=== PATIENT | female | born 1930 | race Caucasian/White ===

== ENCOUNTER → 2016-09-22 08:22 | Day surgery (SDC) | payer MEDICARE ==
[~2016-09-22 08:22] MED LIST: Acetaminophen TAB* 325 MG PO PRN; Buffered Lidocaine 1% SYR 3ML* 3 ML/SYR SYRINGE INTRADERM ONE; Bupivacaine 0.25% SDV* 30 ML ONE; DiMENhydriNATE IV* 50 MG/ML VIAL IV PUSH PRN; Famotidine IV* 10 MG/ML 2 ML (20 mg) IV ONE; Famotidine IV* 10 MG/ML 2 ML (20 mg) ONE; Ketorolac INJ* 30 MG/ML 1 ML VIAL ONE; Lidocaine 2% PF * 5 ML VIAL ONE; Midazolam* 1 MG/ML 2 ML VIAL (2 MG) ONE; Ondansetron INJ* 2 MG/ML VIAL ONE; Propofol* 10 MG/ML 20 ML BTL IV PUSH ONE; fentaNYL* 50 MCG/ML 2 ML VIAL (100 MCG VIAL) ONE
[2016-09-22 11:18] VITALS: BP 151/74
--- NOTE | 2016-09-23 03:34 | OP ---
DATE OF OPERATION: 09/22/16 - MERGED WITH [facility] DATE OF : 28 SURGEON: Dell Evans MD EMOTIONAL SUPPORT TEACHER: KATYA Kumar ANESTHESIOLOGIST: Dr. Clarke. ANESTHESIA: Local MAC. PRE-OP DIAGNOSIS: Left carpal tunnel syndrome. POST-OP DIAGNOSIS: Left carpal tunnel syndrome. OPERATIVE PROCEDURE: Left open carpal tunnel release. INDICATIONS: Johanna is an 85-year-old female with significant and severe left carpal tunnel syndrome. 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 We had talked about risks and benefits and all the potential procedures for the hand. Ultimately, we decided to see if she would get enough relief performing the left carpal tunnel release to make it tolerable. We had discussed risks and benefits. EBL: 5 mL. COMPLICATIONS: None. FINDINGS: As expected. DESCRIPTION OF PROCEDURE: Johanna was seen in the preoperative area and the correct side and site were marked. We came back to the operating room where she got some anesthesia through the IV and then I infiltrated the operative area with 0.25% Marcaine without epinephrine. The IV was placed on the operative site and the antecubital fossa given her prior mastectomy and lymph node dissection in the contralateral upper extremity. We then prepped and draped the arm in the usual fashion and a formal time out was performed. I then exsanguinated the arm using the Esmarch and left the Esmarch in place as the tourniquet proximally. The distal aspect of the Esmarch was clipped off with the scissors. I then made a standard 2 to 3 cm longitudinal incision for an open carpal tunnel release. Dissection was carried down through the skin, subcutaneous tissue, and palmar fascia. I then used my tenotomy scissors to make subcutaneous tunnel just ulnar to the palmaris longus tendon and superficial to the distal antebrachial fascia. Once this was done, I then used a 15 blade to open up the carpal tunnel and incise the transverse carpal ligament just off the radial aspect of the hook of the hamate. The release was performed from distal to proximal. When I got to the level of the volar wrist flexion crease, I placed a Edith retractor and retracted the skin and subcutaneous tissues superficially. The tenotomy scissors were then used to release the rest of the transverse carpal ligament in distal antebrachial fascia to a level of about 4 to 5 cm proximal to the volar wrist flexion crease. I then checked proximal and distal. There was just a few more fibers of the ligament intact distal and so that was done with the tenotomy scissors. I then irrigated the wound and skin was closed with some 4-0 nylon suture. Wound was dressed with Xeroform, 4x4s, sterile Webril and an Devon wrap. She was then taken to recovery room in stable condition. [id number]/[facility] #: [id number] JULIÁN
== END | disposition home or self-care (01) ==
LOC: OREAST 08:22
PROVIDERS: ATTEND Orthopaedic Surgery Hand Surgery
DX: G56.02 Carpal tunnel syndrome, left upper limb (principal); M18.0 Bilateral primary osteoarthritis of first carpometacarpal joints; I10 Essential (primary) hypertension; J45.909 Unspecified asthma, uncomplicated; Z86.718 Personal history of other venous thrombosis and embolism; Z85.3 Personal history of malignant neoplasm of breast
CPT/HCPCS: J1885; J2250; J2405; J2704; J3010

== ENCOUNTER 2017-02-12 06:55 | Inpatient (IN) | payer MEDICARE ==
[2017-02-12] MEDS ORDERED: Magnesium Hydroxide LIQ* 30 ML UDC PO PRN (13:07)
[2017-02-12] MEDS ORDERED: Enoxaparin(*) 30 MG/0.3 ML SYR SUBCUT SCH (14:00)
[2017-02-12] MEDS: Artificial Tears* 15 ML BTL BOTH EYES SCH ×2 (15:40→21:16)
[2017-02-12] MEDS: Montelukast Sodium TAB* 10 MG PO SCH (16:47)
[2017-02-12] MEDS ORDERED: PTO:Bimatoprost 0.01% OPHTH (NF) 2.5 ML BTL BOTH EYES SCH (18:00)
[2017-02-12] MEDS: Senna TAB PO SCH (21:16)
[2017-02-12] MEDS: Docusate CAP* 100 MG PO SCH (21:16)
[2017-02-12] MEDS: Gabapentin CAP(*) 300 MG PO SCH (21:17)
[2017-02-12] MEDS: PTO:Bimatoprost 0.01% OPHTH (NF) 2.5 ML BTL BOTH EYES SCH (21:18)
--- NOTE | 2017-02-12 23:04 | HP ---
ADMISSION HISTORY AND PHYSICAL: DATE OF ADMISSION: 02/12/17 REASON FOR ADMISSION: Right total knee replacement. HISTORY OF PRESENT ILLNESS: Johanna Burr is an 86-year-old female. She has a medical history significant for asthma. The patient had longstanding right knee pain. She had tried and failed conservative therapy. The patient saw Dr. Brent Woodall. It was decided the best course of action would be for her to have a right total knee replacement. She was admitted to [facility] on 02/09/17 and underwent a total knee replacement that day. Postoperatively, her course was notable for acute blood loss anemia. She did not require a transfusion. She was started on Lovenox. The patient was felt to have physical therapy and occupational therapy needs. She is now being admitted for inpatient rehab so she might return to independent living. PAST MEDICAL HISTORY: Significant for the aforementioned asthma. She has a history of hypertension, depression, and left-sided sciatica. CURRENT MEDICATIONS: Include: 1. Sheridan. 2. Ventolin HFA inhaler. 3. Norvasc. 4. Arimidex for breast cancer. 5. Lumigan eyedrops. 6. Celexa. 7. Lovenox for DVT prophylaxis. 8. Neurontin. 9. Singulair. 10. Prilosec. 11. Timolol eyedrops. ALLERGIES: The patient has allergies listed to ALPHAGAN EYEDROPS, which caused burning in her eyes. SOCIAL HISTORY: She is a nonsmoker, nondrinker. She lives at [place]. She lost her about a year ago. She is a retired nurse, who worked at this hospital for 21 years. REVIEW OF SYSTEMS: The patient reports no current shortness of breath, chest pain or constipation. PHYSICAL EXAMINATION VITAL SIGNS: The patient's temperature is 99.0, blood pressure is 150/59, pulse 77, respirations 20. HEENT: Extraocular movements are intact. Tongue is midline. NECK: Supple. LUNGS: Sound clear to auscultation bilaterally. HEART: Regular. S1 and S2 are audible. ABDOMEN: Soft and nontender. EXTREMITIES: Her right leg has an area of erythema over the right knee. She also has erythema laterally on either side of the knee. There is mild swelling in the right leg. Peripheral pulses are intact. NEUROLOGIC: She is awake, alert, and oriented. Muscle strength 5/5 in both upper and lower extremities. Right leg is about 3/5 secondary to pain. FUNCTIONAL EXAM: She transfers with min assist. ASSESSMENT: Right total knee replacement. PLAN: Integrate her into a comprehensive and therapeutic rehab program with the following goals. 1. Physical Therapy will work with the patient. They are going to work on functional transfer training and ambulation training with a walker. 2. Occupational Therapy will see the patient and work on her activities of daily living including toileting and toilet transfers. 3. Lovenox for DVT prophylaxis. 4. Adequate analgesia. 5. Continue medications for asthma including ProAir inhaler as well as Singulair. 6. Continue her blood pressure medicines. 7. student support services director will be closely involved to make sure that any services and equipment that the patient requires are in place prior to discharge. 8. Advanced directives: The patient is a full code. Her daughter is the healthcare proxy. 9. Home with appropriate services. ESTIMATED LENGTH OF STAY: 7 to 10 days. [id number]/[facility] #: [id number] JULIÁN
[2017-02-13] MEDS: HYDROcodone/ACETAMIN 5-325 MG* 1 TAB PO PRN ×3 (00:40→20:43)
[2017-02-13] MEDS: Omeprazole CAP* 20 MG PO SCH (05:33)
[2017-02-13] MEDS: Artificial Tears* 15 ML BTL BOTH EYES SCH ×4 (05:41→20:47)
[2017-02-13] MEDS: Enoxaparin(*) 30 MG/0.3 ML SYR SUBCUT SCH ×2 (05:44→20:47)
[2017-02-13 06:26] LABS: Hematocrit 27 % (35-47); Hemoglobin 8.8 g/dl (12.0-16.0); Mean Corpuscular HGB Conc 33 g/dl (31-36); Mean Corpuscular Hemoglobin 31 pg (27-31); Mean Corpuscular Volume 96 fL (80-97); Mean Platelet Volume 8 um3 (7.4-10.4); Red Blood Count 2.82 10^6/ul (4.0-5.4); Red Cell Distribution Width 14 % (10.5-15); White Blood Count 8.4 10^3/ul (3.5-10.8)
[2017-02-13 06:45] LABS: Albumin 2.9 g/dL (3.2-5.2); Calcium 8.5 mg/dL (8.6-10.3); EGFR African American 194.2 (>60); Globulin 3.2 g/dL (2-4); Potassium 3.4 mmol/L (3.5-5.0); Total Bilirubin 0.7 mg/dL (0.2-1.0); Total Protein 6.1 g/dL (6.4-8.9)
[2017-02-13] MEDS: PTO:Timolol 0.5% OPTH.SOL* BTL BOTH EYES SCH (08:11)
[2017-02-13] MEDS: Gabapentin CAP(*) 300 MG PO SCH (08:13)
[2017-02-13] MEDS: Docusate CAP* 100 MG PO SCH ×2 (08:13→20:45)
[2017-02-13] MEDS: Ferrous Sulfate TAB* 325 MG PO SCH (08:13)
[2017-02-13] MEDS: celeCOXIB CAP* 200 MG PO SCH (08:14)
[2017-02-13] MEDS: amLODIPine TAB* 5 MG PO SCH (08:14)
[2017-02-13] MEDS: Citalopram TAB* 20 MG PO SCH (08:15)
[2017-02-13] MEDS: Potassium Chlor TAB* 20 MEQ TAB.ER PO SCH ×2 (09:34→20:46)
--- NOTE | 2017-02-13 11:16 | RAD ---
Indication: Right leg edema. Duplex Doppler sonography of the deep venous system of the right lower extremity deep venous system was performed. Bilaterally the common femoral veins appear patent and compressible. Right proximal greater saphenous vein, proximal deep femoral vein, femoral vein, popliteal vein, posterior tibial veins and peroneal veins appear patent and compressible. Limited evaluation of the peroneal veins. IMPRESSION: NO EVIDENCE OF DEEP VENOUS THROMBOSIS IS IDENTIFIED.
--- NOTE | 2017-02-13 12:29 | PMRUTEAM ---
PMRU: Goals Current Status: Nursing: Current Status Skin Deviations [Right Knee] Incision Physical Therapy: Current Status Bed Mobility Assistance supervision Transfer Moblility Assistance CGA Transfer/Bed Mobility Rolling Walker Recommended Devices Ambulation Assistance CGA Ambulation Assistive Devices Rolling Walker Stairs Assistance Contact Guard Assist Stairs Recommended Devices Two Rails Number of Stairs 2 Occupational Therapy: Current Status Upper Body Dressing Supervision Lower Body Dressing Mod Assist Bathing Min Assist Toileting Contact Guard Assist Toilet Transfer Contact Guard Assist Shower Transfer Contact Guard Assist Eating Supervision Rec Therapy: Current Status Summary of Assessment and Pt. was open to conversation and very talkative Clinical Impression throughout. Pt. was bright and engaged. Pt. states she enjoys her life and was able to identify with many activities of interest. Pt. was open to continued visits. Treatment Goals Pt. will engage in leisure activities while on the unit. Treatment Plan Provide RT services and encourage involvement. Social Work: Current Status Discharge Plan return home with home care svs and family support Potential for Family Training pt's family is involved and supportive Anticipated Discharge Home Destination Discharge With home care svs and family support Goals: Physical Therapy: Initial Goals Bed Mobility Assistance Independent Transfer Mobility Assistance Independent Transfer/Bed Mobility Rolling Walker Recommended Devices Ambulation Independent Ambulation Recommended Devices Rolling Walker Ambulation Distance 300 Stairs Assistance Independent Stair Recommended Devices Two Rails Number of Stairs 5 Occupational Therapy: Initial Goals Goals to be Completed in (Days 5-7 ) Upper Body Bathing Routine Independent Lower Body Bathing Routine Modified Independent with Upper Body Dressing Routine Independent Lower Body Dressing Routine Modified Independent with Toilet Hygeine and Clothing Modified Independent with Management Routine Toilet Transfer Routine Modified Independent with Step-In Shower Transfer Modified Independent with Routine Functional Transfers for ADL Modified Independent with Grooming Routine Independent Feeding Routine Independent Social Work: Goals Discharge Plan return home with home care svs and family support Potential for Family Training pt's family is involved and supportive Anticipated Discharge Home Destination Discharge With home care svs and family support Care Plan: Care Plan DVT Prophylaxis- Improve/Maintain Start: 02/12/17 13:43 Freq: DAILY Status: Active Target: Activity Type Activity Date Activity User E-Sign Co-Sign Detail Recorded Client Recorded Date Recorded By Document 02/12/17 20:00 [id number] 02/13/17 02:17 [id number] 02/12/17 20:00 PMRU Outcome: DVT Prophylaxis Outcome/Goals Remains Free of DVT Complies with DVT Prophylaxis /Treatment Demonstrates Knowledge of DVT Prevention/ Treatment TEDS Stockings on Every AM, Off at HS Progression Toward Outcome/Goals Progressing Education-Improve/Maintain Start: 02/12/17 13:43 Freq: DAILY Status: Active Target: Activity Type Activity Date Activity User E-Sign Co-Sign Detail Recorded Client Recorded Date Recorded By Document 02/12/17 20:00 [id number] 02/13/17 02:17 [id number] 02/12/17 20:00 PMRU Outcome: Education Outcome/Goals Demonstrate/ Verbalize Understanding of Written Discharge Instructions Demonstrates Skills Encourage Questions Progression Toward Outcome/Goals Progressing Medication Administration Start: 02/12/17 13:43 Freq: DAILY Status: Active Target: Activity Type Activity Date Activity User E-Sign Co-Sign Detail Recorded Client Recorded Date Recorded By Document 02/12/17 20:00 [id number] [email or web address] 02/13/17 02:17 02/12/17 20:00 PMRU Outcome: Medication Administration Assess Patient Knowledge/Teach Med Yes Education for all Meds Outcome/Goals Patient Independent with Medication Administration at Home Demonstrates Understanding Progression Towards Outcome/Goals Progressing Is Patient Going Home on Lovenox? Yes If Patient is Going Home on Lovenox, Who Pt. self Will Administer Pain/Comfort- Improve/Maintain Start: 02/12/17 13:43 Freq: DAILY Status: Active Target: Activity Type Activity Date Activity User E-Sign Co-Sign Detail Recorded Client Recorded Date Recorded By Document 02/12/17 20:00 [id number] [email or web address] 02/13/17 02:17 [id number] 02/12/17 20:00 PMRU Outcome: Pain/Comfort Outcome/Goals Demonstrates Knowledge and Use of Available Comfort Measures Achieves Acceptable Comfort/Pain Level as Determined by Patient/Condit Maintain Comfort Level Allowing Patient to Fully Participate in Rehab Progression Toward Outcome/Goals Progressing Respiratory - Improve/Maintain Start: 02/12/17 13:43 Freq: DAILY Status: Active Target: Activity Type Activity Date Activity User E-Sign Co-Sign Detail Recorded Client Recorded Date Recorded By Document 02/12/17 20:00 [id number] 02/13/17 02:17 [id number] 02/12/17 20:00 PMRU Outcome: Respiratory Does Patient Have a Trach No Outcome/Goals Maintain/ Improve Activity Tolerance Prevent Pneumonia/ Atelectasis Progression Toward Outcome/Goals Progressing Safety- Improve/Maintain Start: 02/12/17 13:43 Freq: DAILY Status: Active Target: Activity Type Activity Date Activity User E-Sign Co-Sign Detail Recorded Client Recorded Date Recorded By Document 02/12/17 20:00 [id number] [email or web address] 02/13/17 02:17 [id number] 02/12/17 20:00 PMRU Outcome: Safety Outcome/Goals Remain Free of Injury or Harm Cooperates with Safety Measures for Least Restrictive Environment Prevent Falls/ Injury Progression Toward Outcome/Goals Progressing Skin- Improve/Maintain Start: 02/12/17 13:43 Freq: DAILY Status: Active Target: Activity Type Activity Date Activity User E-Sign Co-Sign Detail Recorded Client Recorded Date Recorded By Document 02/12/17 20:00 [id number] 02/13/17 02:17 [id number] 02/12/17 20:00 PMRU Outcome: Skin Skin Risk Level Medium Skin Orders Turn/Position q2hr While in Bed Outcome/Goals Maintain/ Improve Skin Intergrity Maintain/ Improve Wound Status Progression Toward Outcome/Goals Progressing Medicine Note: Length of Stay: [7 days] Anticipated Discharge Destination: Home Tentative Discharge Date: [02/20/17] Discharged to: [home]
[2017-02-13] MEDS: Anastrozole (NF) 1 MG TAB PO SCH (13:23)
[2017-02-13] MEDS: Montelukast Sodium TAB* 10 MG PO SCH (16:59)
[2017-02-13] MEDS: Senna TAB PO SCH (20:45)
[2017-02-13] MEDS: Gabapentin CAP(*) 100 MG PO SCH (20:46)
[2017-02-13] MEDS: PTO:Bimatoprost 0.01% OPHTH (NF) 2.5 ML BTL BOTH EYES SCH (23:11)
[2017-02-14] MEDS: Enoxaparin(*) 30 MG/0.3 ML SYR SUBCUT SCH ×2 (05:47→22:10)
[2017-02-14] MEDS: Omeprazole CAP* 20 MG PO SCH (05:47)
[2017-02-14] MEDS: Docusate CAP* 100 MG PO SCH ×2 (08:20→22:01)
[2017-02-14] MEDS: amLODIPine TAB* 5 MG PO SCH (08:20)
[2017-02-14] MEDS: celeCOXIB CAP* 200 MG PO SCH (08:21)
[2017-02-14] MEDS: Potassium Chlor TAB* 20 MEQ TAB.ER PO SCH ×2 (08:22→22:02)
[2017-02-14] MEDS: Gabapentin CAP(*) 100 MG PO SCH ×2 (08:22→22:02)
[2017-02-14] MEDS: Ferrous Sulfate TAB* 325 MG PO SCH (08:22)
[2017-02-14] MEDS: PTO:Timolol 0.5% OPTH.SOL* BTL BOTH EYES SCH (08:23)
[2017-02-14] MEDS: HYDROcodone/ACETAMIN 5-325 MG* 1 TAB PO PRN (08:23)
[2017-02-14] MEDS: Artificial Tears* 15 ML BTL BOTH EYES SCH ×3 (08:23→19:34)
[2017-02-14] MEDS: Anastrozole (NF) 1 MG TAB PO SCH (08:28)
[2017-02-14] MEDS: CMCS - Anastrozole (NF) 1 MG TAB PO SCH (11:23)
[2017-02-14] MEDS: Citalopram TAB* 20 MG PO SCH ×2 (12:21→22:02)
[2017-02-14] MEDS ORDERED: Iohexol 300* (CONTRAST) 10 ML SDV IV ONE (13:37)
[2017-02-14] MEDS: Magnesium Oxide TAB* 400 MG PO SCH (13:45)
--- NOTE | 2017-02-14 15:46 | RAD ---
INDICATION: Right eye pain and hematoma COMPARISON: None. TECHNIQUE: Noncontrast CT examination of the right hip and femur through the superior portion of the lower leg.. Axial images were acquired and sagittal and coronal reformats were created and independently analyzed. FINDINGS: There are degenerative changes of the right hip including mild marginal osteophyte formation. The right femur appears to be intact. The right knee prosthesis is anatomically aligned. There is a small to moderate joint effusion but no definite intra-articular gas. Beginning at the distal femur and tracking proximally there is a heterogeneous intramuscular collection involving the medial aspect of the quadriceps muscle. Throughout this collection there is intramuscular gas. A more well-circumscribed soft tissue collection is seen along the medial margin of the femur measuring 2 x 2 centimeters in the axial plane and approximately 5.2 cm in length (coronal image 32 and axial image 137). This appears to be contained within and immediately deep to the musculature of the quadriceps and inferior most portion of the hip abductor. There is superficial induration of the subcutaneous tissue. IMPRESSION: Beginning just above the knee prosthesis and tracking proximally within and deep to the musculature of the medial quadriceps muscle there is heterogeneous fluid and soft tissue with a large amount of intramuscular gas. There is a small to moderate joint effusion but no definite intra-articular gas formation (at least visible in the presence of streak artifact from a knee prosthesis). There is a mild to moderate infiltration of the subcutaneous fat. This may be an expected appearance status post total knee arthroplasty, but the possibility of gas forming microbial infection is not delineated by CT imaging alone. Findings were discussed over the telephone with Dr. Alejandre at approximately 1540 hours on February 14, 2017.
[2017-02-14] MEDS: Montelukast Sodium TAB* 10 MG PO SCH (16:44)
[2017-02-14 16:53] LABS: Hematocrit 28 % (35-47); Hemoglobin 9.2 g/dl (12.0-16.0); Mean Corpuscular HGB Conc 32 g/dl (31-36); Mean Corpuscular Hemoglobin 31 pg (27-31); Mean Corpuscular Volume 97 fL (80-97); Mean Platelet Volume 8 um3 (7.4-10.4); Red Blood Count 2.93 10^6/ul (4.0-5.4); Red Cell Distribution Width 14 % (10.5-15); White Blood Count 8.1 10^3/ul (3.5-10.8)
[2017-02-14 17:32] LABS: Erythrocyte Sed Rate 120 mm/Hr (0-40)
--- NOTE | 2017-02-14 17:40 | CONSULT ---
Subjective Date of Service: 02/14/17 Interval History: 86 yo F with hx of HTN, asthma, depression, GERD, breast cancer s/p R MOE with some warmth, erythema/ecchymoses and abnormal CT. Patient underwent R TKA on at [facility]. Was observed there and transferred to [facility] on 02/12/17. She was noted to on admission H&P to erythema over the knee and on both sides. The patient states she did not note these changes until arriving here that day. Reports she had been progressing well at [facility], had no drainage, wound dressing was set to remain in place until follow-up. Says she had temperature of 99 max at [facility]. Progress note from yesterday notes some possible improvement in the discoloration however today seems to be worse. Due to concerns for possible infection patient underwent a CT scan which showed a fluid/soft-tissue collection tracking in the quadriceps with intramuscular gas , also a joint effusion without intra-articular gas. Dr. Davison was consulted who reviewed the films at thought an infectious etiology (specifically necrotizing fasciitis) was unlikely. Hospitalist service was asked to consult for consideration of antibiotics. Family History: Unchanged from Admission - M - of CVA, F - of cancer Social History: Unchanged from Admission - No hx of tobacco abuse, no EtOH or illicit drug use. Former nurse Past Medical History: Unchanged from Admission - HTN, asthma depression, sciatica, GERD, breast cancer s/p mastectomy Review of Systems - Measurements Intake and Output: Intake and Output Last 24 Hours 02/12/17 02/13/17 02/14/17 02/15/17 06:59 06:59 06:59 06:59 Intake Total 440 890 350 Balance 440 890 350 Weight 63.503 kg 63.503 kg Intake: Oral 440 890 350 Other: Estimated Void Medium Small Medium # Bowel Movements 1 1 Estimated Stool Amount Large Medium # Voids 1 1 1 - Review of Systems Constitutional Symptoms: Negative: Fever Dermatology: Positive: Other - Erythema/ecchymoses on RLE HEENT: Positive: Normal Eyes: Positive: Glaucoma, Cataract Thyroid: Positive: Normal Pulmonary: Positive: Normal Cardiology: Positive: Normal Gastroenterology: Positive: Normal Genital - Urinary: Positive: Normal Endocrinology: Positive: Normal Hematologic/Lymphatic: Negative: Easy Brusing Neurology: Positive: Normal Psychiatry: Positive: Normal Objective Active Medications: Acetaminophen (Tylenol Tab*) 650 mg PO Q6H PRN Hydrocodone Bitart/Acetaminophen ([place] 5-325 Tab*) 1 tab PO Q6H PRN Albuterol (Ventolin Hfa Inhaler*) 2 puff INH Q6H PRN Amlodipine Besylate (Norvasc Tab*) 5 mg PO DAILY [facility] Anastrozole (Arimidex (Nf)) 1 mg PO DAILY [facility] Bimatoprost (Lumigan 0.01% Ophth (Nf)) 1 drop BOTH EYES BEDTIME [facility] Celecoxib (Celebrex Cap*) 200 mg PO DAILY [facility] Citalopram Hydrobromide (Celexa Tab*) 20 mg PO BEDTIME [facility] Docusate Sodium (Colace Cap*) 100 mg PO BID [facility] Enoxaparin Sodium (Lovenox(*)) 30 mg SUBCUT 0700,1900 [facility] Ferrous Sulfate (Ferrous Sulfate Tab*) 325 mg PO DAILY [facility] Gabapentin (Neurontin Cap(*)) 100 mg PO BID [facility] Magnesium Hydroxide (Milk Of Magnesia Liq*) 30 ml PO Q6H PRN Magnesium Oxide (Magox 400 Tab*) 400 mg PO DAILY [facility] Montelukast Sodium (Singulair Tab*) 10 mg PO 1700 [facility] Omeprazole (Prilosec Cap*) 20 mg PO 0600 [facility] Polyvinyl Alcohol (Polyvinyl Alcohol 1.4% Opth*) 1 drop BOTH EYES TID [facility] Potassium Chloride (Klor Con Er Tab*) 20 meq PO BID [facility] Senna (Senokot Tab*) 2 tab PO BEDTIME [facility] Timolol Maleate (Timoptic 0.5% Opth*) 1 drop BOTH EYES DAILY [facility] Vital Signs 02/13/17 02/13/17 02/13/17 22:43 22:46 23:44 Temperature 98.2 F Pulse Rate 68 Respiratory 18 18 20 Rate Blood Pressure 121/50 (mmHg) O2 Sat by Pulse 98 Oximetry 02/14/17 02/14/17 10:23 15:52 Temperature 97.4 F Pulse Rate 66 Respiratory 16 16 Rate Blood Pressure 122/50 (mmHg) O2 Sat by Pulse 100 Oximetry Oxygen Devices in Use Now: None Appearance: Elderly F, laying in bed in NAD Eyes: No Scleral Icterus Ears/Nose/Mouth/Throat: Clear Oropharnyx, Mucous Membranes Moist, - - poor dentition Neck: NL Appearance and Movements; NL JVP Respiratory: Symmetrical Chest Expansion and Respiratory Effort, Clear to Auscultation Cardiovascular: NL Sounds; No Murmurs; No JVD, RRR Abdominal: NL Sounds; No Tenderness; No Distention Lymphatic: No Cervical Adenopathy Extremities: - - RLE pitting edema below the knee Skin: - - Ecchymoses on medial and lateral thigh, tracking up towards the buttocks and groin, warmth, mild TTP, no crepitus appreciated, knee dressing in place, no drainage noted, no erythema noted surrounding the incision site or knee itself, effusion present Neurological: Alert and Oriented x 3 Result Diagrams: 02/14/17 16:26 02/13/17 05:56 Assessment/Plan - Billing Post-op pain, ecchymosis, edema with intra-muscular fluid collection/gas after R TKA on 02/09 in an 86 yo F with hx of HTN, asthma, GERD, breast cancer, depression 1) RLE CT changes, edema, ecchymosis - I think the CT findings are likely just post-op changes rather than a deep infection or a necrotizing fasciitis. She has some mild tenderness when the thigh is palpated but I would expect her to have significantly more pain if there was a gas-producing infection. Blood work drawn this afternoon is reassuring. She seems to be having significant ecchymosis tracking up the thigh bilaterally , however the area surrounding the incision and the knee itself are a bit swollen but I don't appreciate much erythema there to indicate a cellulitis. For now I would hold on any antibiotics. If the patient spikes a fever or has a significant clinical change indicating the possibility of a deep infection, then would cover broadly with Vanc/Zosyn/Clinda. Will recheck a CBC in the AM. Recommend an orthopedic evaluation as they are more familiar with post- operative knee changes and what to expect. Thank you for this consult. Will continue to follow.
[2017-02-14] MEDS: Senna TAB PO SCH (22:01)
[2017-02-14] MEDS: PTO:Bimatoprost 0.01% OPHTH (NF) 2.5 ML BTL BOTH EYES SCH (22:08)
[2017-02-15] MEDS: HYDROcodone/ACETAMIN 5-325 MG* 1 TAB PO PRN ×3 (03:37→15:01)
[2017-02-15] MEDS: Omeprazole CAP* 20 MG PO SCH (05:56)
[2017-02-15 09:44] LABS: Hematocrit 32 % (35-47); Mean Corpuscular HGB Conc 32 g/dl (31-36); Mean Corpuscular Hemoglobin 31 pg (27-31); Mean Corpuscular Volume 98 fL (80-97); Mean Platelet Volume 8 um3 (7.4-10.4); Red Blood Count 3.22 10^6/ul (4.0-5.4); Red Cell Distribution Width 14 % (10.5-15); White Blood Count 6.9 10^3/ul (3.5-10.8)
[2017-02-15] MEDS: Gabapentin CAP(*) 100 MG PO SCH ×2 (09:47→20:31)
[2017-02-15] MEDS: Docusate CAP* 100 MG PO SCH ×2 (09:47→20:39)
[2017-02-15 09:49] LABS: BUN/Creatinine Ratio 23.4 (8-20); Calcium 9.3 mg/dL (8.6-10.3); EGFR African American 161.2 (>60); EGFR Non-African American 125.3 (>60); Potassium 3.7 mmol/L (3.5-5.0)
[2017-02-15] MEDS: celeCOXIB CAP* 200 MG PO SCH (09:51)
[2017-02-15] MEDS: Ferrous Sulfate TAB* 325 MG PO SCH (09:51)
[2017-02-15] MEDS: CMCS - Anastrozole (NF) 1 MG TAB PO SCH (09:51)
[2017-02-15] MEDS: amLODIPine TAB* 5 MG PO SCH (09:51)
[2017-02-15] MEDS: Artificial Tears* 15 ML BTL BOTH EYES SCH ×3 (09:51→20:37)
[2017-02-15] MEDS: Enoxaparin(*) 30 MG/0.3 ML SYR SUBCUT SCH ×2 (09:51→20:36)
[2017-02-15] MEDS: Magnesium Oxide TAB* 400 MG PO SCH (09:52)
[2017-02-15] MEDS: Potassium Chlor TAB* 20 MEQ TAB.ER PO SCH (09:52)
[2017-02-15] MEDS: PTO:Timolol 0.5% OPTH.SOL* BTL BOTH EYES SCH (09:53)
--- NOTE | 2017-02-15 13:15 | PN ---
Subjective Date of Service: 02/15/17 Interval History: Patient seen this afternoon. Reports some swelling in her foot. Thinks leg looks and feels a bit better today. Says Dr. Devlin evaluated her this AM and did not think there was any significant problems. Family History: Unchanged from Admission - M - of CVA, F - of cancer Social History: Unchanged from Admission - No hx of tobacco abuse, no EtOH or illicit drug use. Former nurse Past Medical History: Unchanged from Admission - HTN, asthma depression, sciatica, GERD, breast cancer s/p mastectomy Objective Active Medications: Acetaminophen (Tylenol Tab*) 650 mg PO Q6H PRN PRN Reason: FEVER/PAIN Hydrocodone Bitart/Acetaminophen ([place] 5-325 Tab*) 1 tab PO Q6H PRN PRN Reason: PAIN - MODERATE TO SEVERE Last Admin: 02/15/17 09:50 Dose: 1 tab Albuterol (Ventolin Hfa Inhaler*) 2 puff INH Q6H PRN PRN Reason: SOB/WHEEZING Amlodipine Besylate (Norvasc Tab*) 5 mg PO DAILY [facility] Last Admin: 02/15/17 09:51 Dose: 5 mg Anastrozole (Arimidex (Nf)) 1 mg PO DAILY [facility] Last Admin: 02/15/17 09:51 Dose: 1 mg Bimatoprost ([place]umigan 0.01% Ophth (Nf)) 1 drop BOTH EYES BEDTIME [place] PRN Reason: Protocol Last Admin: 02/14/17 22:08 Dose: 1 drop Celecoxib (Celebrex Cap*) 200 mg PO DAILY [facility] Last Admin: 02/15/17 09:51 Dose: 200 mg Citalopram Hydrobromide (Celexa Tab*) 20 mg PO BEDTIME [facility] Last Admin: 02/14/17 22:02 Dose: 20 mg Docusate Sodium (Colace Cap*) 100 mg PO BID [facility] Last Admin: 02/15/17 09:47 Dose: 100 mg Enoxaparin Sodium (Lovenox(*)) 30 mg SUBCUT 799,1999 [facility] Last Admin: 02/15/17 09:51 Dose: 30 mg Ferrous Sulfate (Ferrous Sulfate Tab*) 325 mg PO DAILY [facility] Last Admin: 02/15/17 09:51 Dose: 325 mg Fluticasone Propionate (Flonase Nasal [place] 50mcg*) 2 spray BOTH NARES DAILY [facility] Gabapentin (Neurontin Cap(*)) 100 mg PO BID [facility] Last Admin: 02/15/17 09:47 Dose: 100 mg Magnesium Hydroxide (Milk Of Magnjocelyne Liq*) 30 ml PO Q6H PRN PRN Reason: CONSTIPATION Last Admin: 02/14/17 08:24 Dose: 30 ml Magnesium Oxide (Magox 400 Tab*) 400 mg PO DAILY [facility] Last Admin: 02/15/17 09:52 Dose: 400 mg Mometasone Furoate (Asmanex 220 Mcg Mdi *) 2 puff INH QPM [facility] Montelukast Sodium (Singulair Tab*) 10 mg PO 1700 [facility] Last Admin: 02/14/17 16:44 Dose: 10 mg Omeprazole (Prilosec Cap*) 20 mg PO 0600 [facility] Last Admin: 02/15/17 05:56 Dose: 20 mg Polyvinyl Alcohol (Polyvinyl Alcohol 1.4% Opth*) 1 drop BOTH EYES TID [facility] Last Admin: 02/15/17 09:51 Dose: Not Given Senna (Senokot Tab*) 2 tab PO BEDTIME [facility] Last Admin: 02/14/17 22:01 Dose: Not Given Timolol Maleate (Timoptic 0.5% Opth*) 1 drop BOTH EYES DAILY [facility] Last Admin: 02/15/17 09:53 Dose: Not Given Vital Signs 02/14/17 02/14/17 02/14/17 15:52 22:02 23:55 Temperature 97.4 F Pulse Rate 66 Respiratory 16 18 18 Rate Blood Pressure 122/50 (mmHg) O2 Sat by Pulse 100 Oximetry 02/15/17 02/15/17 02/15/17 03:37 05:34 05:45 Temperature 97.8 F Pulse Rate 66 Respiratory 18 16 18 Rate Blood Pressure 134/54 (mmHg) O2 Sat by Pulse 100 Oximetry 02/15/17 02/15/17 09:47 09:50 Temperature Pulse Rate Respiratory 16 16 Rate Blood Pressure (mmHg) O2 Sat by Pulse Oximetry Oxygen Devices in Use Now: None Appearance: Elderly F, laying in bed in NAD Eyes: No Scleral Icterus Abdominal: NL Sounds; No Tenderness; No Distention Extremities: - - RLE edema Skin: - - Ecchymosis tracking up thigh, slightly improved, less warm, dressing over knee appears c/d/i, no erythema around surgical site Result Diagrams: 02/15/17 09:26 02/15/17 09:26 Assess/Plan/Problems-Billing Post-op pain, ecchymosis, edema with intra-muscular fluid collection/gas after R TKA on 02/09 in an 86 yo F with hx of HTN, asthma, GERD, breast cancer, depression 1) RLE CT changes, edema, ecchymosis - patient has remained stable, leg looks slightly improved today. Labs unremarkable. No clear signs of infection, no need for ABx. Gas likely post-op related. Thank you for this consult. Will sign off at this time. Please contact with any further questions.
[2017-02-15] MEDS: Mometasone 220 MCG MDI INH SCH ×2 (15:02→17:15)
[2017-02-15] MEDS: Fluticasone NASAL SPRAY 50MCG* 16 gm SPRAY BTL BOTH NARES SCH (15:03)
[2017-02-15] MEDS: Montelukast Sodium TAB* 10 MG PO SCH (17:12)
[2017-02-15] MEDS: PTO:Bimatoprost 0.01% OPHTH (NF) 2.5 ML BTL BOTH EYES SCH (20:38)
[2017-02-15] MEDS: Citalopram TAB* 20 MG PO SCH (20:39)
[2017-02-15] MEDS: Senna TAB PO SCH (20:39)
[2017-02-16] MEDS: Omeprazole CAP* 20 MG PO SCH (05:46)
[2017-02-16] MEDS: Magnesium Oxide TAB* 400 MG PO SCH (08:27)
[2017-02-16] MEDS: Docusate CAP* 100 MG PO SCH ×2 (08:27→21:32)
[2017-02-16] MEDS: Ferrous Sulfate TAB* 325 MG PO SCH (08:27)
[2017-02-16] MEDS: amLODIPine TAB* 5 MG PO SCH (08:27)
[2017-02-16] MEDS: celeCOXIB CAP* 200 MG PO SCH (08:27)
[2017-02-16] MEDS: CMCS - Anastrozole (NF) 1 MG TAB PO SCH (08:28)
[2017-02-16] MEDS: Gabapentin CAP(*) 100 MG PO SCH ×2 (08:28→21:32)
[2017-02-16] MEDS: HYDROcodone/ACETAMIN 5-325 MG* 1 TAB PO PRN (08:28)
[2017-02-16] MEDS: Artificial Tears* 15 ML BTL BOTH EYES SCH ×3 (08:30→21:31)
[2017-02-16] MEDS: Fluticasone NASAL SPRAY 50MCG* 16 gm SPRAY BTL BOTH NARES SCH (08:33)
[2017-02-16] MEDS: Enoxaparin(*) 30 MG/0.3 ML SYR SUBCUT SCH ×2 (08:35→19:58)
[2017-02-16] MEDS: PTO:Timolol 0.5% OPTH.SOL* BTL BOTH EYES SCH (08:36)
[2017-02-16] MEDS: Montelukast Sodium TAB* 10 MG PO SCH (17:13)
[2017-02-16] MEDS: Mometasone 220 MCG MDI INH SCH (18:00)
[2017-02-16] MEDS: Acetaminophen TAB* 325 MG PO PRN (20:26)
[2017-02-16] MEDS: Citalopram TAB* 20 MG PO SCH (21:15)
[2017-02-16] MEDS: Senna TAB PO SCH (21:33)
[2017-02-16] MEDS: PTO:Bimatoprost 0.01% OPHTH (NF) 2.5 ML BTL BOTH EYES SCH (21:37)
[2017-02-17] MEDS: Artificial Tears* 15 ML BTL BOTH EYES SCH ×4 (01:51→20:09)
[2017-02-17] MEDS: Acetaminophen TAB* 325 MG PO PRN (02:50)
[2017-02-17] MEDS: Albuterol HFA INHALER* 8 gm MDI INH PRN ×2 (05:19→15:15)
[2017-02-17] MEDS: Omeprazole CAP* 20 MG PO SCH (05:25)
[2017-02-17] MEDS: Enoxaparin(*) 30 MG/0.3 ML SYR SUBCUT SCH ×2 (10:00→20:06)
[2017-02-17] MEDS: amLODIPine TAB* 5 MG PO SCH (10:03)
[2017-02-17] MEDS: Ferrous Sulfate TAB* 325 MG PO SCH (10:03)
[2017-02-17] MEDS: celeCOXIB CAP* 200 MG PO SCH (10:11)
[2017-02-17] MEDS: Magnesium Oxide TAB* 400 MG PO SCH (10:12)
[2017-02-17] MEDS: Gabapentin CAP(*) 100 MG PO SCH ×2 (10:13→20:07)
[2017-02-17] MEDS: Docusate CAP* 100 MG PO SCH ×2 (10:14→20:13)
[2017-02-17] MEDS: CMCS - Anastrozole (NF) 1 MG TAB PO SCH (10:15)
[2017-02-17] MEDS: PTO:Timolol 0.5% OPTH.SOL* BTL BOTH EYES SCH (10:17)
[2017-02-17] MEDS: Fluticasone NASAL SPRAY 50MCG* 16 gm SPRAY BTL BOTH NARES SCH (10:17)
--- NOTE | 2017-02-17 12:37 | PMRUTEAM ---
PMRU: Goals Current Status: Nursing: Current Status Skin Deviations [Right Knee] Incision Skin Deviation Description [ drsg cdi. decreased redness and warmth noted Right Knee] Bladder Current Status independent Bowel Current Status taking bowel meds. last bm 02/16/17 Nutrition Current Status adequate Medication Current Status independent Physical Therapy: Current Status Bed Mobility Assistance Supervision Transfer Moblility Assistance Supervision Transfer/Bed Mobility Rolling Walker Recommended Devices Ambulation Assistance Supervision Ambulation Assistive Devices Rolling Walker Number of Feet Patient 150' Ambulated Ambulation Comment step to antalgic gait Stairs Assistance Supervision Stairs Recommended Devices Two Rails Number of Stairs 5 Occupational Therapy: Current Status Upper Body Dressing Supervision Upper Body Dressing Progress set-up Lower Body Dressing Min Assist Lower Body Dressing Progress min A to use sock aide, set-up with cues for underwear/shorts Bathing Min Assist Bathing Progress FWW Toileting Supervision Toileting Progress FWW Toilet Transfer Supervision Toilet Transfer Progress FWW Shower Transfer Supervision Shower Transfer Progress FWW/grab bar/bench Eating Independent Rec Therapy: Current Status Summary of Assessment and RT assessment complete and pt. is aware of Clinical Impression services. Pt. is talkative in conversation and open to continued visits. Pt. states she has difficulty with many activities d/t poor eye sight . Treatment Goals Pt. will engage in leisure activities while on the unit. Treatment Plan Provide RT services and encourage involvement. Social Work: Current Status Discharge Plan return home with home care svs and family support Potential for Family Training pt's family is involved and supportive Anticipated Discharge Home Destination Discharge With home care svs and family support Nutrition: Current Status Monitoring Pt s/p R total knee replacement. Intake appears adequate: generally 75-100% of most meals. BG 124, 149. No noted hx DM or DM meds. BMs 02/14, 02/16. Regular diet currently appropriate; will follow BG and adjust recs as indicated. Full nutrition assessment to follow per protocol. Goals: Physical Therapy: Initial Goals Bed Mobility Assistance Independent Transfer Mobility Assistance Independent Transfer/Bed Mobility Rolling Walker Recommended Devices Ambulation Independent Ambulation Recommended Devices Rolling Walker Ambulation Distance 300 Stairs Assistance Independent Stair Recommended Devices Two Rails Number of Stairs 5 Occupational Therapy: Initial Goals Goals to be Completed in (Days 5-7 ) Upper Body Bathing Routine Independent Lower Body Bathing Routine Modified Independent with Upper Body Dressing Routine Independent Lower Body Dressing Routine Modified Independent with Toilet Hygeine and Clothing Modified Independent with Management Routine Toilet Transfer Routine Modified Independent with Step-In Shower Transfer Modified Independent with Routine Functional Transfers for ADL Modified Independent with Grooming Routine Independent Feeding Routine Independent Nursing: Goals Bladder Goal independent Bowel Goal indepedent Nutrition Goal 100% of all meals eaten Medication Goal independent Nutrition: Goals Intervention Goals 1. Intake will remain adequate to meet needs for post-op healing without loss of lean body mass 2. BG will normalize 3. Pt will maintain regular bowel pattern without constipation Social Work: Goals Discharge Plan return home with home care svs and family support Potential for Family Training pt's family is involved and supportive Anticipated Discharge Home Destination Discharge With home care svs and family support Care Plan: Care Plan ADL's - Improve/Maintain Start: 02/13/17 13:44 Freq: DAILY Status: Active Target: Activity Type Activity Date Activity User E-Sign Co-Sign Detail Recorded Client Recorded Date Recorded By Document 02/13/17 13:44 [id number] 02/13/17 13:44 [id number] 02/13/17 13:44 PMRU Outcome: ADL's/ADL Transfers Orders/Interventions Occupational Therapy Evaluation & Treatment Communication Tool in Patient Room Device Yes: OTC, AE, shower seat Patient to receive OT 5x/wk for 60-120 Therex min/day Self Care Management Group Therapy UE/LE ADL's with Assist Yes: mod I ADL Transfers with Assist Yes: mod I Toileting: Transfers,Clothing Management Yes: mod I ,Hygeine w/Assist Light Kitchen/Laundry w/Assist Yes Progression Toward Outcome/Goals Progressing DVT Prophylaxis- Improve/Maintain Start: 02/12/17 13:43 Freq: DAILY Status: Active Target: Activity Type Activity Date Activity User E-Sign Co-Sign Detail Recorded Client Recorded Date Recorded By Document 02/17/17 10:30 [id number] 02/17/17 11:00 [id number] 02/17/17 10:30 PMRU Outcome: DVT Prophylaxis Outcome/Goals Remains Free of DVT Complies with DVT Prophylaxis /Treatment Demonstrates Knowledge of DVT Prevention/ Treatment TEDS Stockings on Every AM, Off at HS Progression Toward Outcome/Goals Progressing Discharge Planning - Improve/Maintain Start: 02/12/17 13:43 Freq: DAILY Status: Active Target: Activity Type Activity Date Activity User E-Sign Co-Sign Detail Recorded Client Recorded Date Recorded By Document 02/17/17 00:33 [id number] 02/17/17 00:34 [id number] 02/17/17 00:33 PMRU Outcome: Discharge Planning Identify Patient Needs yes Update Patient Family No Outcome/Goals Demonstrates Understanding of Discharge Plan Progression Toward Outcome/Goals Progressing Education-Improve/Maintain Start: 02/12/17 13:43 Freq: DAILY Status: Active Target: Activity Type Activity Date Activity User E-Sign Co-Sign Detail Recorded Client Recorded Date Recorded By Document 02/17/17 10:30 [id number] 02/17/17 11:00 [id number] 02/17/17 10:30 PMRU Outcome: Education Outcome/Goals Demonstrate/ Verbalize Understanding of Written Discharge Instructions Demonstrates Skills Encourage Questions Progression Toward Outcome/Goals Progressing Medication Administration Start: 02/12/17 13:43 Freq: DAILY Status: Active Target: Activity Type Activity Date Activity User E-Sign Co-Sign Detail Recorded Client Recorded Date Recorded By Document 02/17/17 10:30 [id number] 02/17/17 11:00 [id number] 02/17/17 10:30 PMRU Outcome: Medication Administration Assess Patient Knowledge/Teach Med Yes Education for all Meds Outcome/Goals Patient Independent with Medication Administration at Home Demonstrates Understanding Progression Towards Outcome/Goals Progressing Is Patient Going Home on Lovenox? No If Patient is Going Home on Lovenox, Who unknown at this Will Administer time Mobility- Improve/Maintain Start: 02/13/17 17:16 Freq: DAILY Status: Active Target: Activity Type Activity Date Activity User E-Sign Co-Sign Detail Recorded Client Recorded Date Recorded By Document 02/16/17 12:59 [id number] [email or web address] 02/16/17 12:59 [id number] 02/16/17 12:59 PMRU Outcome: Mobility Physical Therapy Evaluation and Yes Treatment Activity OOB with Assistance Yes WBAT Yes Device Yes Assistance Yes Patient to be seen 5x/wk for 60-120 min/ Therex day for: Mobility Training Gait Training W/C Mobility Balance Outcome/Goals Maintain/ Achieve Baseline Mobility Status Improve Mobility Status Demonstrates Proper Use of Assistive Devices Free from Complications of Immobility Progression Toward Outcome/Goals Progressing Bed Mobility Yes: independent Transfers Yes: independent with rolling walker Gait x ft Yes: independent with rolling walekr 150' Up/Down Stairs Yes: independent up/ down 5 stairs with Bilateral rails. Pain/Comfort- Improve/Maintain Start: 02/12/17 13:43 Freq: DAILY Status: Active Target: Activity Type Activity Date Activity User E-Sign Co-Sign Detail Recorded Client Recorded Date Recorded By Document 02/17/17 10:30 [id number] 02/17/17 11:00 [id number] 02/17/17 10:30 PMRU Outcome: Pain/Comfort Outcome/Goals Demonstrates Knowledge and Use of Available Comfort Measures Achieves Acceptable Comfort/Pain Level as Determined by Patient/Condit Maintain Comfort Level Allowing Patient to Fully Participate in Rehab Progression Toward Outcome/Goals Progressing Respiratory - Improve/Maintain Start: 02/12/17 13:43 Freq: DAILY Status: Active Target: Activity Type Activity Date Activity User E-Sign Co-Sign Detail Recorded Client Recorded Date Recorded By Document 02/17/17 10:30 [id number] 02/17/17 11:00 [id number] 02/17/17 10:30 PMRU Outcome: Respiratory Does Patient Have a Trach No Outcome/Goals Maintain/ Improve Baseline Respiratory Status Maintain/ Improve Activity Tolerance Prevent Pneumonia/ Atelectasis Progression Toward Outcome/Goals Progressing Safety- Improve/Maintain Start: 02/12/17 13:43 Freq: DAILY Status: Active Target: Activity Type Activity Date Activity User E-Sign Co-Sign Detail Recorded Client Recorded Date Recorded By Document 02/17/17 10:30 [id number] 02/17/17 11:00 [id number] 02/17/17 10:30 PMRU Outcome: Safety Outcome/Goals Remain Free of Injury or Harm Cooperates with Safety Measures for Least Restrictive Environment Prevent Falls/ Injury Progression Toward Outcome/Goals Progressing Skin- Improve/Maintain Start: 02/12/17 13:43 Freq: DAILY Status: Active Target: Activity Type Activity Date Activity User E-Sign Co-Sign Detail Recorded Client Recorded Date Recorded By Document 02/17/17 10:30 [id number] 02/17/17 11:00 [id number] 02/17/17 10:30 PMRU Outcome: Skin Skin Risk Level Medium Skin Orders Heels Off Bed Turn/Position q2hr While in Bed Outcome/Goals Maintain/ Improve Skin Intergrity Surgical Incisions Healing Progression Toward Outcome/Goals Progressing Medicine Note: Length of Stay: [3 days] Anticipated Discharge Destination: Home Tentative Discharge Date: [02/20/17] Discharged to: [home]
[2017-02-17] MEDS: Montelukast Sodium TAB* 10 MG PO SCH (17:40)
[2017-02-17] MEDS: Mometasone 220 MCG MDI INH SCH (19:08)
[2017-02-17] MEDS: Citalopram TAB* 20 MG PO SCH (20:07)
[2017-02-17] MEDS: PTO:Bimatoprost 0.01% OPHTH (NF) 2.5 ML BTL BOTH EYES SCH (20:09)
[2017-02-17] MEDS: Senna TAB PO SCH (20:13)
[2017-02-18] MEDS: HYDROcodone/ACETAMIN 5-325 MG* 1 TAB PO PRN ×3 (00:07→19:26)
[2017-02-18] MEDS: Omeprazole CAP* 20 MG PO SCH (05:05)
[2017-02-18] MEDS: Acetaminophen TAB* 325 MG PO PRN ×2 (05:05→23:25)
[2017-02-18] MEDS: Fluticasone NASAL SPRAY 50MCG* 16 gm SPRAY BTL BOTH NARES SCH (09:22)
[2017-02-18] MEDS: Artificial Tears* 15 ML BTL BOTH EYES SCH ×3 (09:23→20:09)
[2017-02-18] MEDS: PTO:Timolol 0.5% OPTH.SOL* BTL BOTH EYES SCH (09:23)
[2017-02-18] MEDS: celeCOXIB CAP* 200 MG PO SCH (09:23)
[2017-02-18] MEDS: amLODIPine TAB* 5 MG PO SCH (09:24)
[2017-02-18] MEDS: CMCS - Anastrozole (NF) 1 MG TAB PO SCH (09:25)
[2017-02-18] MEDS: Ferrous Sulfate TAB* 325 MG PO SCH (09:25)
[2017-02-18] MEDS: Gabapentin CAP(*) 100 MG PO SCH ×2 (09:25→20:08)
[2017-02-18] MEDS: Magnesium Oxide TAB* 400 MG PO SCH (09:26)
[2017-02-18] MEDS: Docusate CAP* 100 MG PO SCH ×2 (09:26→20:14)
[2017-02-18] MEDS: Enoxaparin(*) 30 MG/0.3 ML SYR SUBCUT SCH ×2 (09:27→19:26)
[2017-02-18] MEDS: Montelukast Sodium TAB* 10 MG PO SCH (17:27)
[2017-02-18] MEDS: Hemorrhoidal OINT PR PRN (19:17)
[2017-02-18] MEDS: Mometasone 220 MCG MDI INH SCH (19:26)
[2017-02-18] MEDS: Citalopram TAB* 20 MG PO SCH (20:09)
[2017-02-18] MEDS: PTO:Bimatoprost 0.01% OPHTH (NF) 2.5 ML BTL BOTH EYES SCH (20:12)
[2017-02-18] MEDS: Senna TAB PO SCH (20:14)
[2017-02-19] MEDS: HYDROcodone/ACETAMIN 5-325 MG* 1 TAB PO PRN ×2 (03:22→10:20)
[2017-02-19] MEDS: Acetaminophen TAB* 325 MG PO PRN ×2 (06:18→19:37)
[2017-02-19] MEDS: Omeprazole CAP* 20 MG PO SCH (06:18)
[2017-02-19] MEDS: Artificial Tears* 15 ML BTL BOTH EYES SCH ×3 (10:03→21:51)
[2017-02-19] MEDS: Ferrous Sulfate TAB* 325 MG PO SCH (10:19)
[2017-02-19] MEDS: celeCOXIB CAP* 200 MG PO SCH (10:19)
[2017-02-19] MEDS: CMCS - Anastrozole (NF) 1 MG TAB PO SCH (10:19)
[2017-02-19] MEDS: PTO:Timolol 0.5% OPTH.SOL* BTL BOTH EYES SCH (10:19)
[2017-02-19] MEDS: amLODIPine TAB* 5 MG PO SCH (10:19)
[2017-02-19] MEDS: Gabapentin CAP(*) 100 MG PO SCH ×2 (10:20→21:46)
[2017-02-19] MEDS: Docusate CAP* 100 MG PO SCH (10:20)
[2017-02-19] MEDS: Magnesium Oxide TAB* 400 MG PO SCH (10:20)
[2017-02-19] MEDS: Fluticasone NASAL SPRAY 50MCG* 16 gm SPRAY BTL BOTH NARES SCH (10:21)
[2017-02-19] MEDS: Enoxaparin(*) 30 MG/0.3 ML SYR SUBCUT SCH ×2 (10:22→21:47)
[2017-02-19] MEDS: Montelukast Sodium TAB* 10 MG PO SCH (17:19)
[2017-02-19] MEDS: Hemorrhoidal OINT PR PRN (17:20)
[2017-02-19] MEDS: Mometasone 220 MCG MDI INH SCH (17:20)
[2017-02-19] MEDS: TIGER BALM TOPICAL PRN (17:22)
--- NOTE | 2017-02-19 20:14 | RAD ---
INDICATION: Headaches after fall. Intracranial injury. COMPARISON: CT brain October 15, 2013 TECHNIQUE: Noncontrast axial source images were acquired from the skull base to the vertex. FINDINGS: Ventricles/sulci: There is age-related cortical atrophy with compensatory dilatation of the CSF spaces. Brain parenchyma: There is mild the decreased attenuation in the periventricular and subcortical white matter consistent with mild chronic microvascular ischemia. Intracranial hemorrhage:None. Extra-axial spaces: There are no abnormal extra axial fluid collections or evidence of extra-axial mass. Calvarium: There is no calvarial fracture or other calvarial abnormality. Scalp: There is no evidence of scalp or extracalvarial soft tissue abnormality. Paranasal sinuses/mastoid: The paranasal sinuses and mastoid air cells are clear. Other: None. IMPRESSION: No acute intracranial findings.
--- NOTE | 2017-02-19 20:35 | RAD ---
INDICATION: Sacral injury COMPARISON: CT October 15, 2013 TECHNIQUE: AP and lateral views the sacrum were obtained. FINDINGS: There is angulation of the sacrum which is likely developmental and is unchanged in appearance from an earlier CT. No acute fracture is seen. The SI joints and symphysis are intact. There is degenerative change lumbar spine. IMPRESSION: NO ACUTE SACRAL FRACTURE. IF THERE IS CONCERN OF A PELVIC INSUFFICIENCY FRACTURE, SUGGEST A FOLLOW-UP BONE SCAN.
--- NOTE | 2017-02-19 20:35 | RAD ---
INDICATION: Fall. Pelvic pain. COMPARISON: None TECHNIQUE: A single AP view of the pelvis is submitted. FINDINGS: There are no acute osseous findings. The hips articulate normally. The SI joints and symphysis are intact. IMPRESSION: NO ACUTE BONY FINDINGS.
[2017-02-19] MEDS ORDERED: Gabapentin CAP(*) 100 MG PO SCH (21:00)
--- NOTE | 2017-02-19 21:20 | RAD ---
INDICATION: Left wrist injury COMPARISON: Left hand August 15, 2016 TECHNIQUE: AP, lateral, and oblique views were obtained. FINDINGS: There are no acute bony findings. There is underlying osteopenia. There is moderate to advanced osteocytic change about the first carpometacarpal articulation. There is minor radiocarpal osteoarthritis. There is mild soft tissue swelling of the dorsum of the wrist. IMPRESSION: NO ACUTE BONY FINDINGS. FIRST CARPOMETACARPAL OSTEOARTHRITIS. MILD RADIOCARPAL OSTEOARTHRITIS.
[2017-02-19] MEDS: Citalopram TAB* 20 MG PO SCH (21:45)
[2017-02-19] MEDS: PTO:Bimatoprost 0.01% OPHTH (NF) 2.5 ML BTL BOTH EYES SCH (22:08)
[2017-02-20] MEDS: Acetaminophen TAB* 325 MG PO PRN ×2 (01:32→22:59)
[2017-02-20] MEDS: Omeprazole CAP* 20 MG PO SCH (06:04)
[2017-02-20 06:52] LABS: Hematocrit 29 % (35-47); Hemoglobin 9.4 g/dl (12.0-16.0); Mean Corpuscular HGB Conc 33 g/dl (31-36); Mean Corpuscular Hemoglobin 31 pg (27-31); Mean Corpuscular Volume 96 fL (80-97); Mean Platelet Volume 7 um3 (7.4-10.4); Red Cell Distribution Width 15 % (10.5-15); White Blood Count 6.9 10^3/ul (3.5-10.8)
[2017-02-20 07:04] LABS: Albumin 3.1 g/dL (3.2-5.2); BUN/Creatinine Ratio 32.6 (8-20); Calcium 8.9 mg/dL (8.6-10.3); EGFR African American 178.6 (>60); EGFR Non-African American 138.9 (>60); Globulin 3.2 g/dL (2-4); Potassium 3.8 mmol/L (3.5-5.0); Total Bilirubin 0.4 mg/dL (0.2-1.0); Total Protein 6.3 g/dL (6.4-8.9)
--- NOTE | 2017-02-20 07:35 | RAD ---
INDICATION: Trauma, neck pain. COMPARISON: Comparison is made with a prior CT of the chest from October 15, 2013, prior cervical spine x-ray series from April 25, 2015 and prior MRI of the cervical spine from April 10, 2016. TECHNIQUE: Contiguous axial sections were obtained from the skull base through the T1 vertebra. Images were reconstructed in the sagittal and coronal planes. FINDINGS: There is straightening of the cervical spine with loss of the normal cervical lordosis. No prevertebral soft tissue swelling or fracture is seen. At the C1-C2 level there is spinal canal narrowing and spinal cord flattening. This could be further defined with an MRI of the cervical spine as clinically needed. At the C2-C3 level there is mild posterior uncinate process spurring. There appears to be mild spinal canal narrowing and mild to moderate bilateral neural foraminal narrowing. At the C3-C4 level there is mild posterior uncinate process spurring. There is mild spinal canal narrowing. There are severe hypertrophic changes within the facet joint on the left side. There is mild neural foraminal narrowing on the right side and moderate to severe neural foraminal narrowing on the left side. At the C4-C5 level there is minimal posterior uncinate process spurring. No significant spinal canal narrowing is present. There is mild neural foraminal narrowing on the right side and mild to moderate neural foraminal narrowing on the left side. The C5-C6 level there is mild posterior uncinate process spurring. There is mild to moderate spinal canal narrowing. There is mild neural foraminal narrowing on the right side and moderate neural foraminal narrowing on the left side. At the C6-C7 level there is mild posterior uncinate process spurring. There is mild to moderate bilateral neural foraminal narrowing. Ossification is noted within the supraspinous ligament in the lower cervical spine. There is increased density at both lung apices which are unchanged from the prior CT of the chest study most consistent with bilateral apical pleural-parenchymal scarring. IMPRESSION: 1. STRAIGHTENING OF THE CERVICAL SPINE, NO EVIDENCE FOR FRACTURE OR SUBLUXATION. 2. MODERATE DIFFUSE CERVICAL SPONDYLOSIS WITH MORE FOCAL MODERATE TO SEVERE CHANGES AT THE C1-C2 LEVEL. THESE CHANGES COULD BE BETTER DEFINED WITH AN MRI OF THE CERVICAL SPINE CLINICALLY NEEDED.
[2017-02-20] MEDS: Magnesium Oxide TAB* 400 MG PO SCH (07:41)
[2017-02-20] MEDS: Ferrous Sulfate TAB* 325 MG PO SCH (07:41)
[2017-02-20] MEDS: Artificial Tears* 15 ML BTL BOTH EYES SCH ×3 (07:42→21:51)
[2017-02-20] MEDS: celeCOXIB CAP* 200 MG PO SCH (07:42)
[2017-02-20] MEDS: amLODIPine TAB* 5 MG PO SCH (07:42)
[2017-02-20] MEDS: CMCS - Anastrozole (NF) 1 MG TAB PO SCH (07:42)
[2017-02-20] MEDS: Fluticasone NASAL SPRAY 50MCG* 16 gm SPRAY BTL BOTH NARES SCH (07:43)
[2017-02-20] MEDS: Gabapentin CAP(*) 100 MG PO SCH ×2 (07:43→21:43)
[2017-02-20] MEDS: PTO:Timolol 0.5% OPTH.SOL* BTL BOTH EYES SCH (07:46)
[2017-02-20] MEDS: Enoxaparin(*) 30 MG/0.3 ML SYR SUBCUT SCH ×2 (10:25→20:16)
[2017-02-20] MEDS: HYDROcodone/ACETAMIN 5-325 MG* 1 TAB PO PRN (10:27)
[2017-02-20] MEDS: Hemorrhoidal OINT PR PRN ×2 (16:40→20:15)
[2017-02-20] MEDS: Montelukast Sodium TAB* 10 MG PO SCH (16:41)
[2017-02-20] MEDS: Mometasone 220 MCG MDI INH SCH (18:38)
[2017-02-20] MEDS: Citalopram TAB* 20 MG PO SCH (21:44)
[2017-02-20] MEDS: TIGER BALM TOPICAL PRN (21:47)
[2017-02-20] MEDS: PTO:Bimatoprost 0.01% OPHTH (NF) 2.5 ML BTL BOTH EYES SCH (21:51)
[2017-02-21] MEDS: Albuterol HFA INHALER* 8 gm MDI INH PRN (03:21)
[2017-02-21] MEDS: Omeprazole CAP* 20 MG PO SCH (06:39)
[2017-02-21] MEDS: Gabapentin CAP(*) 100 MG PO SCH ×2 (08:26→21:26)
[2017-02-21] MEDS: CMCS - Anastrozole (NF) 1 MG TAB PO SCH (08:26)
[2017-02-21] MEDS: Ferrous Sulfate TAB* 325 MG PO SCH (08:27)
[2017-02-21] MEDS: amLODIPine TAB* 5 MG PO SCH (08:27)
[2017-02-21] MEDS: Enoxaparin(*) 30 MG/0.3 ML SYR SUBCUT SCH ×2 (08:27→20:13)
[2017-02-21] MEDS: Magnesium Oxide TAB* 400 MG PO SCH (08:27)
[2017-02-21] MEDS: celeCOXIB CAP* 200 MG PO SCH (08:27)
[2017-02-21] MEDS: Fluticasone NASAL SPRAY 50MCG* 16 gm SPRAY BTL BOTH NARES SCH (08:28)
[2017-02-21] MEDS: Artificial Tears* 15 ML BTL BOTH EYES SCH ×3 (08:28→21:27)
[2017-02-21] MEDS: PTO:Timolol 0.5% OPTH.SOL* BTL BOTH EYES SCH (09:42)
[2017-02-21] MEDS: TIGER BALM TOPICAL PRN ×2 (11:15→22:25)
[2017-02-21] MEDS: Mometasone 220 MCG MDI INH SCH (17:08)
[2017-02-21] MEDS: Montelukast Sodium TAB* 10 MG PO SCH (17:12)
[2017-02-21] MEDS: Hemorrhoidal OINT PR PRN (18:15)
[2017-02-21] MEDS: Citalopram TAB* 20 MG PO SCH (21:26)
[2017-02-21] MEDS: PTO:Bimatoprost 0.01% OPHTH (NF) 2.5 ML BTL BOTH EYES SCH (21:27)
[2017-02-21] MEDS: Acetaminophen TAB* 325 MG PO PRN (23:45)
[2017-02-22] MEDS: HYDROcodone/ACETAMIN 5-325 MG* 1 TAB PO PRN (06:49)
[2017-02-22] MEDS: Omeprazole CAP* 20 MG PO SCH (06:49)
[2017-02-22] MEDS: Hemorrhoidal OINT PR PRN ×2 (06:55→23:50)
[2017-02-22] MEDS: Gabapentin CAP(*) 100 MG PO SCH ×2 (09:13→20:58)
[2017-02-22] MEDS: celeCOXIB CAP* 200 MG PO SCH (09:13)
[2017-02-22] MEDS: amLODIPine TAB* 5 MG PO SCH (09:14)
[2017-02-22] MEDS: Ferrous Sulfate TAB* 325 MG PO SCH (09:14)
[2017-02-22] MEDS: Magnesium Oxide TAB* 400 MG PO SCH (09:15)
[2017-02-22] MEDS: Artificial Tears* 15 ML BTL BOTH EYES SCH ×3 (09:15→20:58)
[2017-02-22] MEDS: Fluticasone NASAL SPRAY 50MCG* 16 gm SPRAY BTL BOTH NARES SCH (09:15)
[2017-02-22] MEDS: CMCS - Anastrozole (NF) 1 MG TAB PO SCH (09:16)
[2017-02-22] MEDS: Enoxaparin(*) 30 MG/0.3 ML SYR SUBCUT SCH ×2 (09:16→20:57)
[2017-02-22] MEDS: PTO:Timolol 0.5% OPTH.SOL* BTL BOTH EYES SCH (10:45)
[2017-02-22] MEDS: Montelukast Sodium TAB* 10 MG PO SCH (17:09)
[2017-02-22] MEDS: Acetaminophen TAB* 325 MG PO PRN (18:22)
[2017-02-22] MEDS: Mometasone 220 MCG MDI INH SCH (18:23)
[2017-02-22] MEDS: Citalopram TAB* 20 MG PO SCH (20:58)
[2017-02-22] MEDS: PTO:Bimatoprost 0.01% OPHTH (NF) 2.5 ML BTL BOTH EYES SCH (20:59)
[2017-02-22] MEDS: TIGER BALM TOPICAL PRN (20:59)
[2017-02-23] MEDS: Hemorrhoidal OINT PR PRN ×2 (03:15→09:15)
[2017-02-23] MEDS: Acetaminophen TAB* 325 MG PO PRN ×2 (03:19→09:08)
[2017-02-23] MEDS: Omeprazole CAP* 20 MG PO SCH (05:07)
[2017-02-23 06:52] VITALS: BP 140/58
[2017-02-23] MEDS: Fluticasone NASAL SPRAY 50MCG* 16 gm SPRAY BTL BOTH NARES SCH (09:04)
[2017-02-23] MEDS: Artificial Tears* 15 ML BTL BOTH EYES SCH (09:04)
[2017-02-23] MEDS: celeCOXIB CAP* 200 MG PO SCH (09:05)
[2017-02-23] MEDS: Magnesium Oxide TAB* 400 MG PO SCH (09:08)
[2017-02-23] MEDS: amLODIPine TAB* 5 MG PO SCH (09:08)
[2017-02-23] MEDS: CMCS - Anastrozole (NF) 1 MG TAB PO SCH (09:08)
[2017-02-23] MEDS: Ferrous Sulfate TAB* 325 MG PO SCH (09:08)
[2017-02-23] MEDS: Gabapentin CAP(*) 100 MG PO SCH (09:08)
[2017-02-23] MEDS: Enoxaparin(*) 30 MG/0.3 ML SYR SUBCUT SCH (09:10)
[2017-02-23] MEDS: PTO:Timolol 0.5% OPTH.SOL* BTL BOTH EYES SCH (09:14)
[2017-02-23 12:08] LABS: Urine Bacteria Absent (Absent); Urine Bilirubin Negative (Negative); Urine Glucose Negative (Negative); Urine Nitrite Negative (Negative)
--- NOTE | 2017-02-25 04:40 | DS ---
CC: Dr. Alexi Rinaldi. * DISCHARGE SUMMARY: DATE OF ADMISSION: 02/12/17 DATE OF DISCHARGE: 02/23/17 DISCHARGE DIAGNOSES: 1. 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 2. Asthma. 3. Hypertension. 4. Depression. 5. Sciatica. HISTORY OF PRESENT ILLNESS AND HOSPITAL COURSE: For complete history of the events leading up to her rehab stay, please see the history and physical dictated by me on 02/12/17. While on the rehab unit, the patient had some erythema and warmth around the right knee. It was felt likely to be a hematoma. The patient had a Doppler of the right lower extremity that was negative for a DVT. A CAT scan of the right leg was done. Radiologist felt that there was intramuscular gas there possibly concerning for a gas-forming microbial infection. Orthopedics was called and asked to consult. Dr. Devlin saw the patient. Orthopedics felt that the patient most likely had some bruising and that it was stable. There were no signs of any necrotizing fasciitis. The patient seemed to be doing well. She was maintained on Lovenox for DVT prophylaxis. The patient was walking to the bathroom with a nurse on the evening of 02/19/17, when she fell backwards hitting the back of her head on her room door. The patient had a CAT scan of her head which was unrevealing. She had an x-ray of her left wrist which was again unrevealing. She had an x-ray of her pelvis that did not show any acute findings and an x- ray of her sacrum and coccyx which again showed no acute findings. The patient was monitored over the weekend. She was stable. She was felt ready to be discharged home on 02/23/17. The patient was seen by both physical and occupational therapy while on the rehab unit. She did well with both disciplines. With physical therapy at the time of admission, the patient required contact guard for transfer, she could ambulate with contact guard. With occupational therapy, she was min-assist for toileting and lower body dressing, otherwise contact guard. By the time of discharge, the patient was independent transfers, independent ambulating, independent going up and down 2 steps, independent with activities of daily living. She was discharged home on 02/23/17. DISCHARGE DIET: Regular. DISCHARGE MEDICATIONS: Included: 1. [place] balm topically 4 times a day as needed. 2. [place] 5/325 mg 1 tablet every 6 hours as needed. 3. Neurontin 200 mg twice a day. 4. Singulair 10 mg in the evening. 5. Timolol eye drops 1 drop both eyes in the morning. 6. Flonase 1 spray both nares in the morning. 7. MiraLAX 17 g every other day as needed. 8. Albuterol HFA inhaler 2 puffs every 4hours as needed. 9. Celebrex 200 mg daily. 10. [place] eye drops 0.01% 1 drop to both eyes at bedtime. 11. Preparation H as needed. 12. Flovent 110 mcg 2 puffs daily. 13. Celexa 20 mg daily. 14. Omeprazole 20 mg daily. 15. Arimidex 1 mg daily. 16. Norvasc 5 mg daily . 17. Aspirin 81 mg daily. SERVICES AFTER DISCHARGE: Through visiting nurse service in [place]. She will have home nursing, home physical therapy and home health aide, follow up with Dr. Hayes Rinaldi in the next 3 weeks as well as with her orthopedic surgeon, Dr. Brent Woodall, in the following week. [id number]/[facility] #: [id number] JULIÁN
== END 2017-02-23 11:45 | disposition home health service (06) | DRG 561 ==
LOC: PMRU 12:47 → MERGE 12:47
PROVIDERS: ADMIT Physical Medicine & Rehabilitation; ATTEND Physical Medicine & Rehabilitation
PROC: F07Z5ZZ Bed Mobility Treatment (ICD-10-PCS; principal; 2017-02-12)
PROC: F07Z9ZZ Gait Training/Functional Ambulation Treatment (ICD-10-PCS; 2017-02-12)
PROC: F07Z8ZZ Transfer Training Treatment (ICD-10-PCS; 2017-02-12)
PROC: F08Z0ZZ Bathing/Showering Techniques Treatment (ICD-10-PCS; 2017-02-12)
PROC: F08Z1ZZ Dressing Techniques Treatment (ICD-10-PCS; 2017-02-12)
PROC: F08Z3ZZ Feeding/Eating Treatment (ICD-10-PCS; 2017-02-12)
DX: Z47.1 Aftercare following joint replacement surgery (principal); I10 Essential (primary) hypertension; Z96.651 Presence of right artificial knee joint; J45.909 Unspecified asthma, uncomplicated; F32.9 Major depressive disorder, single episode, unspecified; M54.32 Sciatica, left side; W18.30XA Fall on same level, unspecified, initial encounter; Y92.230 Patient room in hospital as the place of occurrence of the external cause; K21.9 Gastro-esophageal reflux disease without esophagitis; M79.651 Pain in right thigh; R58 Hemorrhage, not elsewhere classified; Y93.9 Activity, unspecified; Z85.3 Personal history of malignant neoplasm of breast; Z88.8 Allergy status to other drugs, medicaments and biological substances; Z79.899 Other long term (current) drug therapy; Z82.3 Family history of stroke; Z80.9 Family history of malignant neoplasm, unspecified
CPT/HCPCS: 36415; 70450; 72125; 72170; 72220; 80048; 80053; 81003; 81015; 82465; 83605; 84145; 85025; 85652; 86141; 87077; 87086; 87186; 94640; A9270-GY; J1650; Q9967

== ENCOUNTER 2019-07-12 11:39 | Emergency (ER) | payer MEDICARE ==
--- OUTSIDE RECORDS SUMMARY | 2019-07-12 11:46 | XMS REPORT | Continuity of Care Document ---
:1930 External Reference #:[id number] Author Name Andrade Gordon M.D. Address [address] [place] [address] Care Team Providers Name Role Phone Carlos Tomlin M.D. - Oncology Care Team Information Horse Racing Analyst Milo Dmaon M.D. - Allergy & Care Team Information Horse Racing Analyst Immunology Myrtle Montgomery M.D. - Pediatric Care Team Information Horse Racing Analyst [phone] Dermatology Jennifer Mccray MD - Internal Medicine Care Team Information Horse Racing Analyst Problems Active Problems Provider Date Chronic asthmatic bronchitis Onset: Dyspnea Onset: Gastroesophageal reflux disease Onset: Carcinoma of breast Onset: Bladder muscle dysfunction - overactive Onset: Essential hypertension Onset: Functional heart murmur Onset: Cervical arthritis Onset: Chronic back pain Onset: Osteopenia Onset: Osteophyte of bone Onset: Headache Onset: Poor long-term memory Onset: Depressive disorder Onset: Pure hypercholesterolemia Onset: Anemia Onset: Seasonal allergy Onset: Primary open angle glaucoma Andrade Gordon M.D. Onset: 01/04/2015 Neoplastic disease Andrade Gordon M.D. Onset: 01/04/2015 Severe / Advanced / End Stage Glaucoma Andrade Gordon M.D. Onset: 2014 Pseudophakia Andrade Gordon M.D. Onset: 01/04/2015 Venous retinal branch occlusion Andrade Gordon M.D. Onset: 12/07/2015 Presence of intraocular lens Andrade Gordon M.D. Onset: 12/07/2015 Primary open angle glaucoma of left eye Andrade Gordon M.D. Onset: 2016 Primary open angle glaucoma of right eye Andrade Gordon M.D. Onset: 2016 Squamous blepharitis Jasmyn Aden O.D. Onset: 08/15/2017 Internal hordeolum Jasmyn Aden O.D. Onset: 09/08/2017 Allergic contact dermatitis of eyelid Kristi Salguero O.D. Onset: 2017 Primary iridocyclitis Andrade Gordon M.D. Onset: 01/24/2019 Social History Type Date Description Comments Sex Unknown ETOH Use Denies alcohol use Tobacco Use Start: Unknown Patient has never smoked Recreational Drug Use Denies Drug Use Smoking Status Reviewed: 06/14/19 Patient has never smoked Allergies, Adverse Reactions, Alerts Active Allergies Reaction Severity Comments Date Cosopt red and itchy eyes 01/03/2015 Statins 01/03/2015 Alphagan P burning in eyes 01/03/2015 Preservative 01/03/2015 Sulfa Antibiotics 01/03/2015 Naproxen 01/03/2015 Evista 01/03/2015 Gentamicin 01/03/2015 Bactrim 01/03/2015 Cipro 01/03/2015 Prevacid 01/03/2015 Brimonidine 02/03/2018 Medications Active Medications SIG Qnty Indications Ordering Provider Date Refresh Optive 1 drop both eyes Andrade Gordon, 01/03/2015 0.5-0.9% four times a day M.D. Solution Timolol Maleate Instill 1 Drop 10units Jasmyn Aden, 01/03/2015 0.5% Into Each Eye O.D. Solution Once Daily Lumigan Instill 1 Drop 9units Andrade Gordon, 01/03/2015 0.01% Solution Into Each Eye AT M.D. Bedtime Cephalexin Unknown 500mg Capsules Flovent Diskus Unknown 50mcg/Blist Aerosol Stool Softener Unknown Laxative 8.6-50mg Tablets Lysine HCL Unknown 1000mg Tablets Tylenol Unknown 325mg Capsules Magnesium Unknown 300mg Capsules Vitamin D 3000 - 3500 Unknown 2000Unit daily Tablets Aspirin Unknown 81mg Tablets DR Anastrozole Unknown 1mg Tablets Omeprazole Unknown 20mg Caps[address] Ranitidine HCL Unknown 300mg Tablets Gabapentin Unknown 100mg Capsules Proair HFA prn Unknown 108(90Base) mcg/Act Aerosol Montelukast Sodium Unknown 10mg Tablets Citalopram Unknown Hydrobromide 20mg Tablets Amlodipine Besylate Unknown 5mg Tablets Immunizations Description No Information Available Vital Signs Description No Information Available Results Description No Information Available Procedures Date Code Description Status 01/24/2019 01657 Est Patient Comprehensive Exam Completed Medical Devices Description No Information Available Encounters Description No Information Available Assessments Date Code Description Provider 06/14/2019 H40.1123 Primary open-angle glaucoma, left eye, Andrade Gordon M.D. severe stage 06/14/2019 H40.1112 Primary open-angle glaucoma, right eye, Andrade Gordon M.D. moderate stage 06/14/2019 Z96.1 Presence of intraocular lens Andrade Gordon M.D. 01/24/2019 H40.1123 Primary open-angle glaucoma, left eye, Andrade Gordon M.D. severe stage 01/24/2019 H40.1112 Primary open-angle glaucoma, right eye, Andrade Gordon M.D. moderate stage 01/24/2019 Z96.1 Presence of intraocular lens Andrade Gordon M.D. 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 Plan of Treatment 06/14/2019 - Andrade Gordon M.D.H40.1123 Primary open-angle glaucoma, left eye , severe stageComments:Smoking can increase the risk of developing or worsening any eye related disease, as well as affect your overall health. If you are a smoker, we strongly recommend that you quit.If you are not a smoker, we strongly recommend that you do not start. Your glaucoma is stable at this time in your left eye.Your eye pressure is within an acceptable range, and your testing does not show any further deterioration at this time. Please continue your treatment as directed and keep follow up appointments.Follow up:4 Month Follow Up IOP Check At your next visit, we are not planning to dilate your eyes. However, if you have any changes in your vision or new symptoms, there are certain situations that require us to dilate your eyes. If Dr. Gordon requests any additional testing, that may require extra time. If you have any questions before your next appointment, please call our office at .Z19.3384 Primary open-angle glaucoma, right eye, moderate stageComments: Your Glaucoma is stable at this time in your right eye. Your eye pressure is within an acceptable range, and your testing does not show any further deterioration at this time. Please continue your treatment as directed and keep follow up appointments.Z96.1 Presence of intraocular lens Functional Status Description No Information Available Mental Status Description No Information Available Referrals Description No Information Available
--- NOTE | 2019-07-12 12:09 | ED ---
Lower Extremity - HPI Summary HPI Summary: This pt is an 88 y/o female presenting to [facility] c/o right ankle pain s/p mechanical fall 2 days ago. Pt reports on Thursday (07/10/19) she was standing in front of her apartment inside the building when she turned around and her sneaker got caught and she lost balance and fell. Pt notes she struck the right side of her head but denies LOC. She notes since then she has been having right ankle pain and it was swollen. Pt had her right ankle wrapped with devon wrap and last had Tylenol at 0415 today with relief. She notes hx of frequent mechanical falls. Pt lives in [place] and ambulates with a walker at baseline. Pt reports burning with urination for which she already saw Dr. Tellez, urologist , 2 weeks ago[address] Pt states Dr. Tellez did a urine test and it was negative for a UTI. She takes baby aspirin 81 mg every day. Denies any other anticoagulants. PMHx: HTN, bilateral knee replacement, vision on the left has decreased ( follows up with Dr. Gordon). Denies tobacco, alcohol, and drug use. Medications reviewed. Allergies noted. - History of Current Complaint Chief Complaint: EDFall Stated Complaint: FELL/BLADDER ISSUES PER PT Time Seen by Provider: 07/12/19 11:50 Hx Obtained From: Patient Mechanism Of Injury: Fall From A Standing Position Onset of Pain: Minutes, Post Accident Severity Currently: Moderate Pain Intensity: 6 Pain Scale Used: 0-10 Numeric Timing: Lasting Days Location: Is Discrete @ - right ankle Associated Signs And Symptoms: Positive: Swelling. Negative: Fever Aggravating Factor(s): Ambulation Alleviating Factor(s): Rest Able to Bear Weight: No - Allergies/Home Medications Allergies/Adverse Reactions: Allergies Allergy/AdvReac Type Severity Reaction Status Date / Time Adhesive Tape Allergy Severe Rash Verified 07/12/19 11:50 brimonidine Allergy See Comment Verified 07/12/19 11:50 capsaicin Allergy Rash Verified 07/12/19 11:50 oxycodone Allergy See Comment Verified 07/12/19 11:50 Vnlkkhl-Udu-Ire Reductase Allergy Rash And Verified 07/12/19 11:50 Inhibitor Itching Sulfa (Sulfonamide Allergy Headache Verified 07/12/19 11:50 Antibiotics) tamoxifen Allergy See Comment Verified 07/12/19 11:50 TOMATOES/HOT PEPPERS Allergy LIPS SWELL Uncoded 01/28/17 11:52 Home Medications: Home Medications Acetaminophen [Tylenol Extra Strength] 1,000 mg PO Q6H PRN 07/12/19 [History Confirmed 07/12/19] Aspirin EC TAB* [Ecotrin EC Low Dose 81 MG*] 81 mg PO DAILY 07/12/19 [History Confirmed 07/12/19] Citalopram TAB* [CeleXA TAB*] 20 mg PO QPM 07/12/19 [History Confirmed 07/12/19] Docusate CAP* [Colace Cap*] 100 mg PO BID 07/12/19 [History Confirmed 07/12/19] Famotidine TAB* [Pepcid 20 MG TAB*] 40 mg PO DAILY 07/12/19 [History Confirmed 07/12/19] Fluticasone HFA 110 mcg(NF) [Flovent HFA 110 mcg(NF)] 2 puff INH BID 07/12/19 [ History Confirmed 07/12/19] Folic Acid TAB* [Folvite TAB*] 1 mg PO SUMOTUWEFRSA 07/12/19 [History Confirmed 07/12/19] Gabapentin CAP(*) [Neurontin 100 mg CAP(*)] 100 mg PO QAM 07/12/19 [History Confirmed 07/12/19] Gabapentin CAP(*) [Neurontin 100 mg CAP(*)] 200 mg PO QPM 07/12/19 [History Confirmed 07/12/19] Glucosamine HCl/Chondroitin Martinez [Glucosamine-Chondroitin Liq] 15 ml PO DAILY [History Confirmed 07/12/19] LoraTADine TAB(NF) [Claritin 10 MG TAB(NF)] 10 mg PO DAILY PRN 07/12/19 [ History Confirmed 07/12/19] Lysine 500 mg PO DAILY PRN 07/12/19 [History Confirmed 07/12/19] Methotrexate TAB* 12.5 mg PO TH 07/12/19 [History Confirmed 07/12/19] Montelukast Sodium TAB* [Singulair TAB*] 10 mg PO DAILY 07/12/19 [History Confirmed 07/12/19] Multivitamins/Minerals TAB* [Theragran/minerals TAB*] 1 tab PO DAILY 07/12/19 [ History Confirmed 07/12/19] Polyethylene Glycol 3350* [Miralax*] 17 gm PO DAILY PRN 07/12/19 [History Confirmed 07/12/19] Timolol 0.25% OPHTH.SOLN* [Timoptic Ophth.soln 0.25%] 1 drop BOTH EYES DAILY [History Confirmed 07/12/19] PMH/Surg Hx/FS Hx/Imm Hx Endocrine/Hematology History: Reports: Hx Anticoagulant Therapy - 325 mg po asa daily, Hx Anemia - none recent Denies: Hx Diabetes, Hx Thyroid Disease Cardiovascular History: Reports: Hx Coronary Artery Disease - CHOLESTEROL CONTROL WITH MEDICATION, Hx Deep Vein Thrombosis - After total knee sx; and r/t tamoxifen, Hx Hypercholesterolemia, Hx Hypertension - CONTROLLED WITH MEDS, Other Cardiovascular Problems/Disorders - 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 USEAGE Denies: Hx Pacemaker/ICD Respiratory History: Reports: Hx Asthma - INHALER, Hx Seasonal Allergies, Other Respiratory Problems/Disorders Denies: Hx Chronic Obstructive Pulmonary Disease (COPD), Hx Pneumonia, Hx Sleep Apnea GI History: Reports: Hx Gastroesophageal Reflux Disease - ACID REFLUX CONTROL WITH MEDICATION, Hx Gastrointestinal Bleed - was on coumadin 3 years ago for DVT , Other GI Disorders - CONSTIPATION uses prn medication History: Reports: Other Problems/Disorders - HISTORY OF BLOOD IN URINE from blood thinner Denies: Hx Renal Disease Musculoskeletal History: Reports: Hx Arthritis - knees, Hx Orthopedic Injury - l carpal tunnel surgery, l femur and knee surgery, Hx Osteoporosis, Other Musculoskeletal History - OSTEOPOROSIS, spinal stenosis Sensory History: Reports: Hx Cataracts - has cataract sx, Hx Contacts or Glasses - glasses, Hx Glaucoma - hx of Denies: Hx Deafness, Hx Hearing Aid Opthamlomology History: Reports: Hx Cataracts - has cataract sx, Hx Contacts or Glasses - glasses, Hx Glaucoma - hx of Neurological History: Reports: Hx Headaches - from neck pain, Hx Nerve Disease - sciatic nerve pain, Other Neuro Impairments/Disorders - PAIN CLINIC PT. Denies: Hx Dementia, Hx Seizures Psychiatric History: Reports: Hx Depression Denies: Hx Panic Disorder, Hx Suicide Attempt, Hx of Violent Episodes Against Others, Hx Substance Abuse - Cancer History Cancer Type, Location and Year: Right BREAST Hx Chemotherapy: Yes - PO Hx Radiation Therapy: No - Surgical History Surgery Procedure, Year, and Place: 2009-LEFT KNEE REPLACEMENT, [facility]. RIGHT BREAST LUMPECTOMY X 2,THEN MASTECTOMY -2014 [facility]. RIGHT FOOT BUNIONECTOMY, [facility]. LASIK SURGERY BOTH EYES X 3, [facility]. BILATERAL CATERACT SURGERY,. 1974 HYSTERECTOMY, [facility]. BILATERAL BREAST BIOPSY, [facility]. 2002 RETINA WRINKLE REPAIR, LEFT EYE, [place] - NEEDS PRE MRI ORBITS - PRE MRI ORBITS COMPLETED -CLEARED BY DR BROWN. [facility] EYE. benign tumor removed from left index finger,. carpal tunnel release right wrist Hx Anesthesia Reactions: Yes - vomited several times after surgery Infectious Disease History: No Infectious Disease History: Reports: History Other Infectious Disease - "staph in nose" in january per patient. patient states was not MRSA Denies: Hx Hepatitis, Hx Human Immunodeficiency Virus (HIV), Hx Tuberculosis , Traveled Outside the [place] in Last 30 Days - Family History Known Family History: Positive: Other Family History: No FHx of malignant hyperthermia. No FHx of Breast CA. No FHx of anesthesia reaction - Social History Alcohol Use: None Substance Use Type: Reports: None Smoking Status (MU): Never Smoked Tobacco Have You Smoked in the Last Year: No Review of Systems Negative: Fever Gastrointestinal: Negative Positive: burning Musculoskeletal: Other - POSITIVE: right ankle pain Neurological: Other - NEGATIVE: LOC Negative: Headache All Other Systems Reviewed And Are Negative: Yes Physical Exam - Summary Physical Exam Summary: Constitutional: Well-developed, Well-nourished, Alert. (-) Distressed Skin: Warm, Dry HENT: Normocephalic; Atraumatic Eyes: Conjunctiva normal Neck: Musculoskeletal ROM normal neck. (-) JVD, (-) Stridor, (-) Tracheal deviation Cardio: Rhythm regular, rate normal, Heart sounds normal; Intact distal pulses; The pedal pulses are 2+ and symmetric. Radial pulses are 2+ and symmetric. (-) Murmur Pulmonary/Chest wall: Effort normal. (-) Respiratory distress, (-) Wheezes, (-) Rales Abd: Soft, (-) tenderness, (-) Distension, (-) Guarding, (-) Rebound Musculoskeletal: (-) Edema Lymph: (-) Cervical adenopathy Neuro: Alert, Oriented x3 Psych: Mood and affect Normal Triage Information Reviewed: Yes Vital Signs On Initial Exam: Initial Vitals Temp Pulse Resp BP Pulse Ox 98.8 F 62 16 132/67 99 07/12/19 11:42 07/12/19 11:42 07/12/19 11:42 07/12/19 11:42 07/12/19 11:42 Vital Signs Reviewed: Yes Procedures - Sedation Patient Received Moderate/Deep Sedation with Procedure: No Diagnostics - Vital Signs Vital Signs Temp Pulse Resp BP Pulse Ox 07/12/19 11:42 98.8 F 62 16 132/67 99 - Laboratory Lab Statement: Any lab studies that have been ordered have been reviewed, and results considered in the medical decision making process. - Radiology Right ankle XR Radiology Interpretation Completed By: Radiologist Summary of Radiographic Findings: IMPRESSION: #. Bone density appears decreased throughout corresponding with osteoporosis on June 19, 2017 DEXA scan. #. No cortical disruption or suspicious trabecular irregularity to suggest fracture. #. Normal articular alignment. #. Mild polyarticular osteoarthritis. # . Soft tissue swelling most prominent over the lateral malleolus. Dr. Cazares has reviewed this report. Lower Extremity Course/Dx - Course Course Of Treatment: Patient is here 2 days after rolling her ankle. Patient's ankle was swollen yesterday but has improved after an Devon wrap and ice was applied. Patient had negative x-ray for fracture. Patient did hit her head but has been clinically well-appearing for 2 days and does not need a CT head. Patient did have a UA which showed a UTI. Patient was started on Macrobid. - Diagnoses Provider Diagnoses: UTI (urinary tract infection), Fall, Right ankle sprain Discharge ED - Sign-Out/Discharge Documenting (check all that apply): Patient Departure - Discharge home - Discharge Plan Condition: Stable Disposition: HOME Prescriptions: Nitrofurantoin Monohyd/M-Cryst [Macrobid 100 mg Capsule] 100 mg PO BID 5 Days # 10 cap Patient Education Materials: Ankle Sprain (ED), Urinary Tract Infection in Older Adults (ED) Referrals: Jennifer Mccray MD [Primary Care Provider] - Additional Instructions: PLEASE RETURN TO EMERGENCY DEPARTMENT FOR ANY PAIN ON YOUR SIDES, FEVER, VOMITING. Please follow up with your primary care physician in 1-3 days. - Billing Disposition and Condition Condition: STABLE Disposition: Home - Attestation Statements Document Initiated by Scribe: Yes Documenting Scribe: Lenora Mohan Provider For Whom Scribe is Documenting (Include Credential): Tano Cazares MD Scribe Attestation: I, Lenora Mohan, scribed for Tano Cazares MD on 07/12/19 at 1935. Scribe Documentation Reviewed: Yes Provider Attestation: The documentation as recorded by the scribe, Lenora Mohan accurately reflects the service I personally performed and the decisions made by me, Tano Cazares MD Status of Scribe Document: Viewed
[2019-07-12 13:20] LABS: Urine Appearance Cloudy; Urine Bilirubin Negative (Negative); Urine Blood 2+ (Negative); Urine Color Yellow; Urine Glucose Negative (Negative); Urine Ketones Negative (Negative); Urine Nitrite Negative (Negative); Urine Protein Negative (Negative); Urine Specific Gravity 1.008 (1.010-1.030); Urine Urobilinogen Negative (Negative)
[2019-07-12 13:23] LABS: Urine Bacteria Absent (Absent); Urine Red Blood Cell 1+(3-5/hpf) (Absent); Urine White Blood Cell 3+(>20/hpf) (Absent)
[2019-07-12 13:42] VITALS: BP 157/73
== END 2019-07-12 13:41 | disposition home or self-care (01) ==
LOC: ED 11:39
DX: S93.401A Sprain of unspecified ligament of right ankle, initial encounter (principal); N39.0 Urinary tract infection, site not specified; W18.39XA Other fall on same level, initial encounter; Y92.039 Unspecified place in apartment as the place of occurrence of the external cause; I25.10 Atherosclerotic heart disease of native coronary artery without angina pectoris; E78.00 Pure hypercholesterolemia, unspecified; I10 Essential (primary) hypertension; J45.909 Unspecified asthma, uncomplicated; K21.9 Gastro-esophageal reflux disease without esophagitis; F32.9 Major depressive disorder, single episode, unspecified; Z86.718 Personal history of other venous thrombosis and embolism; Z85.3 Personal history of malignant neoplasm of breast; Z96.652 Presence of left artificial knee joint; Z90.11 Acquired absence of right breast and nipple; Z90.710 Acquired absence of both cervix and uterus; Z79.82 Long term (current) use of aspirin; Z79.899 Other long term (current) drug therapy; Z88.5 Allergy status to narcotic agent; Z88.2 Allergy status to sulfonamides; Z88.8 Allergy status to other drugs, medicaments and biological substances
CPT/HCPCS: 81003; 81015; 87077; 87086; 87186; 99283

== ENCOUNTER 2019-07-15 08:05 | Emergency (ER) | payer MEDICARE ==
[2019-07-15 08:48] LABS: Urine Appearance Clear; Urine Bilirubin Negative (Negative); Urine Blood Negative (Negative); Urine Color Straw; Urine Glucose Negative (Negative); Urine Ketones Negative (Negative); Urine Nitrite Negative (Negative); Urine Protein Negative (Negative); Urine Specific Gravity 1.005 (1.010-1.030); Urine Urobilinogen Negative (Negative)
[2019-07-15 09:32] LABS: ABS Eosinophils 0.1 10^3/ul (0-0.6); ABS Lymphocytes 0.8 10^3/ul (1.0-4.8); ABS Monocytes 0.5 10^3/ul (0-0.8); Eosinophil % 1.6 %; Hematocrit 37 % (35-47); Hemoglobin 12.5 g/dL (12.0-16.0); Lymphocyte % 12.2 %; Mean Corpuscular HGB Conc 33 g/dL (31-36); Mean Corpuscular Hemoglobin 33 pg (27-31); Mean Corpuscular Volume 99 fL (80-97); Mean Platelet Volume 7.3 fL (7.4-10.4); Nucleated Red Blood Cells % 0.1; Platelet Count 245 10^3/uL (150-450); Red Blood Count 3.79 10^6 /uL (3.70-4.87); Red Cell Distribution Width 15 % (10-15); White Blood Count 6.4 10^3/uL (3.5-10.8)
[2019-07-15 09:53] LABS: Albumin 3.9 g/dL (3.2-5.2); Albumin/Globulin Ratio 1.4 (1-3); BUN/Creatinine Ratio 29.2 (8-20); EGFR African American 147.3 (>60); EGFR Non-African American 121.8 (>60); Globulin 2.8 g/dL (2-4); Potassium 4.2 mmol/L (3.5-5.0); Total Bilirubin 0.4 mg/dL (0.2-1.0); Total Protein 6.7 g/dL (6.4-8.9)
--- NOTE | 2019-07-15 10:48 | ED ---
Head Injury - HPI Summary HPI Summary: Patient is an 88-year-old female presenting to the ED after a fall this morning. Patient states she began to feel weak, fell back, striking her head with positive loss of consciousness. She states she denies any memory loss, confusion, visual changes, headache at this time. She states she feels she has been weak for several months, with a few falls intermittently. She has been seen by [facility] several times in the past few months for same. She was diagnosed with a UTI 3 days ago and given Macrobid. Denies any urinary symptoms at this time. She denies any fevers, sweats, chills. Continues to eat and drink okay. She is from [facility]. She denies any other symptoms at this time. She denies any pain. - History Of Current Complaint Chief Complaint: EDWeakness Stated Complaint: FALL Time Seen by Provider: 07/15/19 08:07 Hx Obtained From: Patient Mechanism Of Injury: Direct Blow Onset/Duration: Started Hours Ago Onset of Pain: Hours Severity Currently: Mild Severity Initially: Mild Pain Intensity: 8 Pain Scale Used: 0-10 Numeric Location of Head Injury: Other: - occipital area Associated Signs And Symptoms: LOC Duration Unknown - Risk Factors SDH Risk Factor: Negative - Allergies/Home Medications Allergies/Adverse Reactions: Allergies Allergy/AdvReac Type Severity Reaction Status Date / Time Adhesive Tape Allergy Severe Rash Verified 07/15/19 08:19 brimonidine Allergy See Comment Verified 07/15/19 08:19 capsaicin Allergy Rash Verified 07/15/19 08:19 oxycodone Allergy See Comment Verified 07/15/19 08:19 [id number]-Wba Reductase Allergy Rash And Verified 07/15/19 08:19 Inhibitor Itching Sulfa (Sulfonamide Allergy Headache Verified 07/15/19 08:19 Antibiotics) tamoxifen Allergy See Comment Verified 07/15/19 08:19 TOMATOES/HOT PEPPERS Allergy LIPS SWELL Uncoded 07/15/19 08:19 PMH/Surg Hx/FS Hx/Imm Hx Previously Healthy: Yes Endocrine/Hematology History: Reports: Hx Anticoagulant Therapy - 325 mg po asa daily, Hx Anemia - none recent Denies: Hx Diabetes, Hx Thyroid Disease Cardiovascular History: Reports: Hx Coronary Artery Disease - CHOLESTEROL CONTROL WITH MEDICATION, Hx Deep Vein Thrombosis - After total knee sx; and r/t tamoxifen, Hx Hypercholesterolemia, Hx Hypertension - CONTROLLED WITH MEDS, Other Cardiovascular Problems/Disorders - 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 USEAGE Denies: Hx Pacemaker/ICD Respiratory History: Reports: Hx Asthma - INHALER, Hx Seasonal Allergies, Other Respiratory Problems/Disorders Denies: Hx Chronic Obstructive Pulmonary Disease (COPD), Hx Pneumonia, Hx Sleep Apnea GI History: Reports: Hx Gastroesophageal Reflux Disease - ACID REFLUX CONTROL WITH MEDICATION, Hx Gastrointestinal Bleed - was on coumadin 3 years ago for DVT , Other GI Disorders - CONSTIPATION uses prn medication History: Reports: Other Problems/Disorders - HISTORY OF BLOOD IN URINE from blood thinner Denies: Hx Renal Disease Musculoskeletal History: Reports: Hx Arthritis - knees, Hx Orthopedic Injury - l carpal tunnel surgery, l femur and knee surgery, Hx Osteoporosis, Other Musculoskeletal History - OSTEOPOROSIS, spinal stenosis Sensory History: Reports: Hx Cataracts - has cataract sx, Hx Contacts or Glasses - glasses, Hx Glaucoma - hx of Denies: Hx Deafness, Hx Hearing Aid Opthamlomology History: Reports: Hx Cataracts - has cataract sx, Hx Contacts or Glasses - glasses, Hx Glaucoma - hx of Neurological History: Reports: Hx Headaches - from neck pain, Hx Nerve Disease - sciatic nerve pain, Other Neuro Impairments/Disorders - PAIN CLINIC PT. 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 RIGHT BREAST LUMPECTOMY X 2,THEN MASTECTOMY -2014 [facility]. RIGHT FOOT BUNIONECTOMY, [facility]. LASIK SURGERY BOTH EYES X 3, [facility]. BILATERAL CATERACT SURGERY,. 1974 HYSTERECTOMY, [facility]. BILATERAL BREAST BIOPSY, [facility]. 2002 RETINA WRINKLE REPAIR, LEFT EYE, [place] - NEEDS PRE MRI ORBITS - PRE MRI ORBITS COMPLETED -CLEARED BY DR BROWN. LASER EYE. benign tumor removed from left index finger,. carpal tunnel release right wrist Hx Anesthesia Reactions: Yes - vomited several times after surgery Infectious Disease History: No Infectious Disease History: Reports: History Other Infectious Disease - "staph in nose" in january per patient. patient states was not MRSA Denies: Hx Hepatitis, Hx Human Immunodeficiency Virus (HIV), Hx Tuberculosis , Traveled Outside the [place] in Last 30 Days - Family History Known Family History: Positive: Other Family History: No FHx of malignant hyperthermia. No FHx of Breast CA. No FHx of anesthesia reaction - Social History Alcohol Use: None Substance Use Type: Reports: None Smoking Status (MU): Never Smoked Tobacco Have You Smoked in the Last Year: No Review of Systems Negative: Fever, Chills, Fatigue, Skin Diaphoresis Negative: Palpitations, Chest Pain Negative: Shortness Of Breath, Cough Negative: Arthralgia, Myalgia Neurological: Negative All Other Systems Reviewed And Are Negative: Yes Physical Exam Triage Information Reviewed: Yes Vital Signs On Initial Exam: Initial Vitals Temp Pulse Resp BP Pulse Ox 97.7 F 66 16 191/84 99 07/15/19 08:15 07/15/19 08:15 07/15/19 08:15 07/15/19 08:15 07/15/19 08:15 Vital Signs Reviewed: Yes Appearance: Positive: Well-Appearing, Well-Nourished Skin: Positive: Warm, Skin Color Reflects Adequate Perfusion Head/Face: Positive: Normal Head/Face Inspection Eyes: Positive: EOMI, Conjunctiva Clear Neck: Positive: Supple, No Lymphadenopathy Respiratory/Lung Sounds: Positive: Clear to Auscultation, Breath Sounds Present Cardiovascular: Positive: RRR, Pulses are Symmetrical in both Upper and Lower Extremities Musculoskeletal: Positive: Strength/ROM Intact Neurological: Positive: Speech Normal Psychiatric: Positive: Affect/Mood Appropriate AVPU Assessment: Alert Procedures - Sedation Patient Received Moderate/Deep Sedation with Procedure: No Diagnostics - Vital Signs Vital Signs Temp Pulse Resp BP Pulse Ox 07/15/19 10:00 56 16 97 07/15/19 09:57 60 20 98 07/15/19 09:15 60 11 99 07/15/19 08:56 68 19 178/75 99 07/15/19 08:27 69 19 164/82 100 07/15/19 08:24 14 07/15/19 08:15 97.7 F 66 16 191/84 99 - Laboratory Lab Results: Lab Results 07/15/19 07/15/19 07/15/19 Range/Units 08:20 09:26 09:26 WBC 6.4 (3.5-10.8) 10^3/uL RBC 3.79 (3.70-4.87) 10^6 /uL Hgb 12.5 (12.0-16.0) g/dL Hct 37 (35-47) % MCV 99 H (80-97) fL MCH 33 H (27-31) pg MCHC 33 (31-36) g/dL RDW 15 (10-15) % Plt Count 245 (150-450) 10^3/uL MPV 7.3 L (7.4-10.4) fL Neut % (Auto) 78.1 % Lymph % (Auto) 12.2 % [place] % (Auto) 7.7 % Eos % (Auto) 1.6 % Baso % (Auto) 0.4 % Absolute Neuts (auto) 5.0 (1.5-7.7) 10^3/ul Absolute Lymphs (auto) 0.8 L (1.0-4.8) 10^3/ul Absolute Monos (auto) 0.5 (0-0.8) 10^3/ul Absolute Eos (auto) 0.1 (0-0.6) 10^3/ul Absolute Basos (auto) 0.0 (0-0.2) 10^3/ul Absolute Nucleated RBC 0.0 10^3/ul Nucleated RBC % 0.1 Sodium 140 (135-145) mmol/L Potassium 4.2 (3.5-5.0) mmol/L Chloride 107 (101-111) mmol/L Carbon Dioxide 27 (22-32) mmol/L Anion Gap 6 (2-11) mmol/L BUN 14 (6-24) mg/dL Creatinine 0.48 L (0.51-0.95) mg/dL Est GFR ( Amer) 147.3 (>60) Est GFR (Non-Af Amer) 121.8 (>60) BUN/Creatinine Ratio 29.2 H (8-20) Glucose 124 H (70-100) mg/dL Calcium 9.0 (8.6-10.3) mg/dL Total Bilirubin 0.40 (0.2-1.0) mg/dL AST 21 (13-39) U/L ALT 16 (7-52) U/L Alkaline Phosphatase 90 (34-104) U/L Total Protein 6.7 (6.4-8.9) g/dL Albumin 3.9 (3.2-5.2) g/dL Globulin 2.8 (2-4) g/dL Albumin/Globulin Ratio 1.4 (1-3) Urine Color Straw Urine Appearance Clear Urine pH 7.0 (5-9) Ur Specific Ragland 1.005 L (1.010-1.030) Urine Protein Negative (Negative) Urine Ketones Negative (Negative) Urine Blood Negative (Negative) Urine Nitrate Negative (Negative) Urine Bilirubin Negative (Negative) Urine Urobilinogen Negative (Negative) Ur Leukocyte Esterase Negative (Negative) Urine Glucose Negative (Negative) Result Diagrams: 07/15/19 09:26 07/15/19 09:26 Lab Statement: Any lab studies that have been ordered have been reviewed, and results considered in the medical decision making process. Head Injury Course/Dx Course Of Treatment: Patient is evaluated for weakness and fall, diagnosed with a UTI a few days ago. Labs were not obtained a few days ago when she had her prior fall. She has been on Macrobid [address] brain obtained which shows no acute abnormalities. Labs obtained which showed no acute findings and are WNL. Discussed with the patient she is encouraged to follow up with PCP regarding her frequent falls over the past several months. Patient is alert and oriented 3, lungs CTA, RRR, no trauma noted throughout the bilateral upper and lower extremities, chest or abdomen. No bruising noted to the back. No cephalohematoma. Patient acting appropriately, smiling on exam and appears to be in no acute distress. She will remain on her Macrobid at this time. - Diagnoses Provider Diagnoses: Fall, Head injury, Weakness Discharge ED - Sign-Out/Discharge Documenting (check all that apply): Patient Departure - Discharge Plan Condition: Stable Disposition: HOME Patient Education Materials: Fall Prevention for Older Adults (ED) Referrals: Jennifer Mccray MD [Primary Care Provider] - Additional Instructions: Continue all your medications as scheduled Please follow up with your PCP regarding your recent falls - Billing Disposition and Condition Condition: STABLE Disposition: Home - Attestation Statements Provider Attestation: I was available for consultation for this patient. I did not evaluate the patient or participate in any medical decision making or disposition decisions unless I am specifically named in the chart as having consulted on the patient. If I have consulted on the patient, please see my own ED note on the patient encounter. Tressa Hurt MD
[2019-07-15 11:16] VITALS: BP 155/66
== END 2019-07-15 10:24 | disposition home or self-care (01) ==
LOC: ED 08:05
DX: S09.90XA Unspecified injury of head, initial encounter (principal); R53.1 Weakness; W19.XXXA Unspecified fall, initial encounter; Y92.129 Unspecified place in nursing home as the place of occurrence of the external cause; I25.10 Atherosclerotic heart disease of native coronary artery without angina pectoris; E78.00 Pure hypercholesterolemia, unspecified; I10 Essential (primary) hypertension; K21.9 Gastro-esophageal reflux disease without esophagitis; F32.9 Major depressive disorder, single episode, unspecified; Z85.3 Personal history of malignant neoplasm of breast; Z96.652 Presence of left artificial knee joint; Z90.11 Acquired absence of right breast and nipple; Z90.710 Acquired absence of both cervix and uterus; Z79.82 Long term (current) use of aspirin; Z79.899 Other long term (current) drug therapy; Z88.2 Allergy status to sulfonamides; Z88.5 Allergy status to narcotic agent; Z88.8 Allergy status to other drugs, medicaments and biological substances
CPT/HCPCS: 36415; 70450; 80053; 81003; 85025; 99283